=== PATIENT | female | born 1940 | race Caucasian/White ===

== ENCOUNTER 2017-01-04 13:15 | Inpatient (IN) | payer MEDICARE, MEDICAID ==
[~2017-01-04] VITALS: Ht 167.6 cm; Wt 104.3 kg
[~2017-01-04 13:15] MED LIST: BAYER CHEWABLE81 MG PO; CYCLOBENZAPRINE10 MG PO; K-TAB10 MEQ PO; SYNTHROID112 MCG PO; TYLENOL W/CODEI1 TAB PO; ZESTORETIC 20/21 TAB PO
[2017-01-04] MEDS ORDERED: SYNTHROID100 MCG PO (17:36)
[2017-01-04] MEDS ORDERED: NEURONTIN 300300 MG PO (17:37)
[2017-01-04] MEDS ORDERED: PRINIVIL10 MG PO (17:37)
[2017-01-04] MEDS ORDERED: FUROSEMIDE20 MG PO (17:38)
[2017-01-04] MEDS ORDERED: ZYLOPRIM100 MG PO (17:40)
[2017-01-04] MEDS ORDERED: MYRBETRIQ25 MG PO (17:41)
[2017-01-04] MEDS ORDERED: OMEPRAZOLE40 MG PO (17:41)
[2017-01-04] MEDS ORDERED: IPRAT-ALBUT 0.5-3 ML UPD (17:42)
[2017-01-04] MEDS ORDERED: BAYER CHEWABLE81 MG PO (17:42)
[2017-01-04] MEDS ORDERED: DOXYCYCLINE HY100 M2 PO (17:43)
[2017-01-05 10:27] VITALS: Ht 167.6 cm; Wt 104.3 kg
[2017-01-07 16:00] VITALS: BP 191/72
[2017-01-07] MEDS ORDERED: LEVAQUIN750 MG PO (17:27)
== END 2017-01-07 19:43 | disposition home or self-care (01) | DRG 871 ==
LOC: D.ER 13:15 → D.M2 15:22
PROVIDERS: ADMIT Family Medicine
DX: A41.9 Sepsis, unspecified organism (principal); J18.9 Pneumonia, unspecified organism; J44.0 Chronic obstructive pulmonary disease with (acute) lower respiratory infection; I10 Essential (primary) hypertension; I25.10 Atherosclerotic heart disease of native coronary artery without angina pectoris; E03.9 Hypothyroidism, unspecified; D63.8 Anemia in other chronic diseases classified elsewhere; M25.50 Pain in unspecified joint; Z86.718 Personal history of other venous thrombosis and embolism; Z99.81 Dependence on supplemental oxygen; R19.7 Diarrhea, unspecified; Z95.5 Presence of coronary angioplasty implant and graft

== ENCOUNTER → 2017-07-16 13:33 | Outpatient (CLI) | payer MEDICARE ==
[2017-01-05 10:27] VITALS: BMI 37.1
[~2017-07-16 13:33] MED LIST changes: +DOXYCYCLINE HY100 M2 PO; +FUROSEMIDE20 MG PO; +IPRAT-ALBUT 0.5-3 ML UPD; +LEVAQUIN750 MG PO; +MYRBETRIQ25 MG PO; +NEURONTIN 300300 MG PO; +OMEPRAZOLE40 MG PO; +PRINIVIL10 MG PO; +PROAIR HFA8.5 GM INH; +SYNTHROID100 MCG PO; +ZYLOPRIM100 MG PO
[2017-07-16 16:05] LABS: ANION GAP 10.9 mmol/L (8-16); CALCIUM 8.9 mg/dL (8.5-10.1); CARBON DIOXIDE 34.5 mmol/L (21.0-32.0); POTASSIUM - SERUM 4.4 mmol/L (3.5-5.1)
[2017-07-24 03:10] LABS: IMMUNOGLOBULIN E 35 IU/mL (0-100)
== END | disposition home or self-care (01) ==
LOC: D.RT 07-14 09:00 → D.RAD 07-14 10:15 → D.LAB 07-14 11:00 → D.RT 13:33
PROVIDERS: Internal Medicine Pulmonary Disease
DX: J44.9 Chronic obstructive pulmonary disease, unspecified (principal)

== ENCOUNTER 2017-08-17 11:01 | Outpatient (CLI) | payer MEDICARE ==
[~2017-08-17] VITALS: Ht 167.6 cm; Wt 100.5 kg
--- NOTE | ~2017-08-17 | HEMODYNAMI ---
PATIENT:ANTONIO BARAJAS MEDICAL RECORD: [id number] : 38 LOCATION:D.CAT ADMISSION DATE: 08/17/17 Generatedon:08/17/201713:52 Patient name: ANTONIO BARAJAS Patient #: [id number] : 1940 Date of study: 08/17/2017 Page: Of Hemodynamic Procedure Report Patient Data Patient Demographics Procedure consent was obtained First Name: ANTONIO Gender: Female Last Name: JENN : 1940 [facility] Initial: L Age: 76 year(s) Patient #: [id number] Race: Unknown SSN: [id number] Additional ID: [id number] Contact details [address]: [address] [place] [address] DRIVE State: [place] City: [place] Zip code: [address] Past Medical History Allergies Allergen Reaction Date Comments Reported Morphine 08/17/2017 Admission Admission Data Admission Date: 08/17/2017 Admission Time: 11:01 Arrival Date: 08/17/2017 Arrival Time: 13:00 Admit Source: Other Insurance Payor: Medicare Lab Results Lab Result Date: 08/17/2017 Lab Result Time: 0:00 Biochemistry Name Units Result Min Max BUN mg/dl 18 --(---*)-- 7 18 Creatinine mg/dl 1.1 --(--*-)-- 0.6 1.3 CBC Name Units Result Min Max Hemoglobin g/dl 11.9 *-(----)-- 13.5 17.5 Procedure Procedure Types Cath Procedure Diagnostic Procedure LHC LHC w/Coronaries Sedation Charges Moderate Sedation up to 15 minutes Procedure Description Procedure Date Procedure Date: 08/17/2017 Procedure Start Time: 13:25 Procedure End Time: 13:47 Procedure Staff Name Function Albino Thornton MD Performing Physician Carmel Perales RN Nurse Tg Jansen RT Monitor Pinky Mcintyre RT Scrub Procedure Data Cath Procedure Fluoroscopy Diagnostic fluoroscopy Total fluoroscopy Time: 3.3 time: 3.3 min min Diagnostic fluoroscopy Total fluoroscopy dose: 615 dose: 615 mGy mGy Contrast Material Contrast Material Type Amount (ml) Isovue 300 62 Entry Location Entry Primary Successful Side Size Upsize Upsize Entry Closure Succes sful Closure Location (Fr) 1 (Fr) 2 (Fr) Remarks Device Remarks Femoral Right 5 Fr Exoseal artery Estimated blood loss: 5 ml Diagnostic catheters Device Type Used For End Catheter Placement DIAGNOSTIC JL 3.5 5Fr Left Coronary catheter ([id number]) Angiography Procedure Complications No complications Procedure Medications Medication Administration Route Dosage Oxygen NC 4 l/min Lidocaine 2% added to field 20 Heparin Flush Bag added to field 2 bags (1000units/500ml NS) 0.9% NaCl I.V. 100 ml/hr Versed I.V. 2 mg Fentanyl I.V. 50 mcg Versed I.V. 1 mg Fentanyl I.V. 50 mcg Versed I.V. 1 mg Hemodynamics Rest HGB: 11.9 (g/dl) Heart Rate: 77 (bpm) Pressure Samples Time Site Value (mmHg) Purpose Heart Use Rate(bpm) 13:42 LV 142/-22,-9 Snapshot 80 13:43 AO 161/153(82) Pullback 97 Gradients Valve Time Site Site 2 Mean SEP/DFP Peak To Heart Use 1 (mmHg) (sec/min) Peak Rate (mmHg) (bpm) Aortic 13:43 LV AO 36 23 97 161/153(82) Calculations Valve P-P Mean Valve Index Valve Source Name Gradient Area Flow (cm2) Aortic 36 36 Snapshots Pre Cath Intra NCS Post Cath Vital Signs Time Heart Resp SPO2 etCO2 NIBP (mmHg) Rhythm Pain Sedation Rate (ipm) (%) (mmHg) Status Level (bpm) 13:09:53 76 28 100 0 165/83(117) NSR 0 (11) 10(A) , No pain 13:16:32 78 19 99 0 167/92(135) NSR 0 (11) 10(A) , No pain 13:20:48 73 25 97 0 165/86(124) NSR 0 (11) 10(A) , No pain 13:25:04 75 26 100 0 145/87(123) NSR 0 (11) 10(A) , No pain 13:29:12 77 22 100 0 162/85(121) NSR 0 (11) 10(A) , No pain 13:33:26 78 17 95 0 164/86(114) NSR 0 (11) 10(A) , No pain 13:37:44 83 28 100 0 159/76(125) NSR 0 (11) 10(A) , No pain 13:41:56 84 19 100 0 158/89(124) NSR 0 (11) 10(A) , No pain 13:46:08 83 11 100 0 158/88(120) NSR 0 (11) 10(A) , No pain Medications Time Medication Route Dose Verified Delivered Reason Notes Effe ctiveness by by 13:15:08 Oxygen NC 4 Albino Buffie used for l/min Norberto Perales RN procedure 13:15:15 Lidocaine 2% added 20ml Albino Albino for local to vial Norberto Thornton MD anesthetic field 13:15:21 Heparin Flush added 2 Albino Albino used for Bag to bags Norberto Thornton MD procedure (1000units/500ml field NS) 13:15:33 0.9% NaCl I.V. 100 Albino Buffie Per ml/hr Norberto Perales RN physician 13:15:46 Versed I.V. 2 mg Albino Buffie for Norberto Perales RN sedation 13:15:55 Fentanyl I.V. 50 Albino Buffie for mcg Norberto Perales RN sedation 13:23:23 Versed I.V. 1 mg Albino Buffie for Norberto Perales RN sedation 13:23:27 Fentanyl I.V. 50 Albino Buffie for mcg Norberto Perales RN sedation 13:30:49 Versed I.V. 1 mg Albino Buffie for Norberto Perales RN sedation Procedure Log Time Note 12:37:29 Patient allergic to Morphine 12:52:14 Tg Jansen RT(R) sent for patient. Start room use. 12:52:15 Time tracking: Regular hours (M-F 7:00 - 5:00) 12:52:19 Plan of Care:Hemodynamics will remain stable., Cardiac rhythm will remain stable., Comfort level will be maintained., Respiratory function will remain adequate., Patient/ family verbilizes understanding of procedure., Procedure tolerated without complication., Recovers from procedure without complications.. 12:52:38 Informed consent obtained and on chart 12:52:50 Patient received from Pre/Post Procedure Room to CCL 2 Alert and oriented. Tansferred to table in Supine position. 12:52:51 Warm blankets applied, and kem hugger turned on for patient comfort. 12:52:51 Correct patient and procedure confirmed by team. 12:52:53 Signed procedure consent form obtained from patient. 12:52:55 ECG and BP/O2 sat monitors applied to patient. 12:53:08 Arrival Date: 08/17/2017 1:00:00 PM 12:53:13 Admit Source: Other 12:53:16 Insurance Payor : Medicare 13:04:51 Full Disclosure recording started 13:04:56 H&P Date Dictated: 08/17/2017 Within 30 days and on chart., H&P Addendum completed by physician on day of procedure. (MUST COMPLETE FOR ALL OUTPATIENTS). 13:04:57 Pre-procedure instructions explained to patient. 13:04:58 Pre-op teaching completed and patient verbalized understanding. 13:04:59 Family in waiting room. 13:05:00 Patient NPO since Midnight. 13:05:03 Is the patient allergic to Iodine/contrast media? No. 13:05:04 Was the patient premedicated? No 13:06:37 Is patient on blood thinner?No 13:06:38 Patient diabetic? No. 13:06:41 Previous problem with sedation/anesthesia? No ? 13:06:46 Snore? No 13:06:47 Sleep apnea? No 13:06:47 Deviated septum? Yes 13:06:49 Opens mouth fully? Yes 13:06:50 Sticks out tongue? Yes 13:07:02 Airway obstruction? Yes on oxygen all the time 13:07:09 Dentures? Yes out 13:07:13 Pre procedure: right dorsailis pedis pulse 1+ Palpable, but thready & weak; easily obliterated 13:07:15 Pre procedure: left dorsailis pedis pulse 1+ Palpable, but thready & weak; easily obliterated 13:07:17 Patient pain scale 0/10 ?. 13:07:29 IV left antecubital D/C'd due to site irritation. 13:07:44 IV [facility] with a 16 gauge IV catheter with 0.9% NaCl at KVO. 13:07:56 Lab results completed and on chart. 13:08:00 Right Radial & Right Groin area was prepped with chlora-prep and draped in sterile fashion 13:08:01 Alarms reviewed by R. N. 13:08: Sharps counted by scrub and verified by R.N. 13:14:08 Physician arrived 13:14:08 --------ALL STOP TIME OUT------ 13:14:09 Final Timeout: patient, procedure, and site verified with staff and physician. All members of the team are in agreement. 13:14:15 Right Radial & Right Groin site verified by team. 13:14:17 Physical assessment completed. ASA score P 2 - A patient with mild systemic disease as per Albino Thornton MD. 13:14:20 Sedation plan: IV Moderate Sedation Medication:Versed, Fentanyl 13:14:27 Use device set Radial Dx or PCI 13:14:28 ACIST Syringe (37035) opened to sterile field. 13:14:29 Medline Cath Pack ([id number]) opened to sterile field. 13:14:30 Bag Decanter (2002S) opened to sterile field. 13:14:30 DIAGNOSTIC WIRE .035 260cm J wire (364500) opened to sterile field. 13:14:31 ACIST Hand Control (91923) opened to sterile field. 13:14:32 ACIST Manifold (43711) opened to sterile field. 13:14:32 Tegaderm 4 x 4 (1626W) opened to sterile field. 13:14:33 MBrace Wrist Support ([id number]) opened to sterile field. 13:14:35 NEEDLE Cook 21G 4cm Radial ([id number]) opened to sterile field. 13:14:36 SHEATH 6Fr Prelude Radial ([id number]) opened to sterile field. 13:15:08 Oxygen 4 l/min NC was administered by Carmel Perales RN; used for procedure; 13:15:15 Lidocaine 2% 20ml vial added to field was administered by Albino Thornton MD; for local anesthetic; 13:15:21 Heparin Flush Bag (1000units/500ml NS) 2 bags added to field was administered by Albino Thornton MD; used for procedure; 13:15:28 Vital chart was started 13:15:29 Baseline sample Acquired. 13:15:33 0.9% NaCl 100 ml/hr I.V. was administered by Carmel Perales RN; Per physician; 13:15:35 Rhythm: sinus rhythm 13:15:46 Versed 2 mg I.V. was administered by Carmel Perales RN; for sedation; 13:15:55 Fentanyl 50 mcg I.V. was administered by Carmel Perales RN; for sedation; 13:23:23 Versed 1 mg I.V. was administered by Carmel Perales RN; for sedation; 13:23:27 Fentanyl 50 mcg I.V. was administered by Carmel Perales RN; for sedation; 13:25:14 Procedure started. 13:25:34 Local anesthetic to right radial artery with Lidocaine 2% by Albino Thornton MD.INITIAL ACCESS ONLY 13:29:43 failed attempt at radial access; preparing for femoral access 13:29:47 Local anesthetic to right femoral artery with Lidocaine 2% by Albino Thornton MD.ADDITIONAL ACCESS 13:30:07 SHEATH 5Fr Prelude ([id number]) opened to sterile field. 13:30:20 DIAGNOSTIC Multipack 5Fr catheter set ([id number]) opened to sterile field. 13:30:49 Versed 1 mg I.V. was administered by Carmel Perales RN; for sedation; 13:31:46 A 5 Fr sheath was inserted into the Right Femoral artery 13:31:54 5 Fr jl 4 guide catheter was inserted over the wire 13:33:35 LCA angiography performed. 13:33:38 Injector settings: Ml/sec: 3, Volume: 6, 13:35:16 Catheter removed. 13:35:49 A DIAGNOSTIC JL 3.5 5Fr catheter ([id number]) was advanced over the wire and used for Left Coronary Angiography. 13:38:11 LCA angiography performed. 13:38:14 Injector settings: Ml/sec: 3, Volume: 6, 13:41:15 Catheter removed. 13:41:32 5 Fr 3drc guide catheter was inserted over the wire 13:42:08 Catheter removed. 13:42:44 5 Fr pig guide catheter was inserted over the wire 13:43:05 LV hemodynamics recorded. 13:43:07 LV gram done using VILLAGRAN 13:43:13 Injector settings: Ml/sec: 5, Volume: 15, 13:43:35 EF : 55 % 13:43:44 Catheter removed. 13:44:17 EXOSEAL 5Fr (EX500) opened to sterile field. 13:44:57 Sheath removed intact; hemostasis achieved with Exoseal to the Right Femoral artery. 13:45:00 Procedure ended.(Physican Out) 13:45:34 Fluoroscopy time 03.30 minutes. 13:45:39 Fluoroscopy dose: 615 mGy 13:45:39 Flurop Dose total: 615 13:46:04 Contrast amount:Isovue 300 62ml. 13:46:06 Sharps counted by scrub and verified by R.N. 13:46:08 Insertion/operative site no bleeding no hematoma. 13:46:11 Post-op/insertion site Right Femoral artery dressed using a 4 x 4 and Tegaderm. 13:46:15 Post right femoral artery:stable 13:46:17 Post Procedure Pulses reassessed and unchanged 13:46:20 Post procedure rhythm: unchanged. 13:46:22 Estimated blood loss: 5 ml 13:46:29 Post procedure instruction explained to patient.Patient verbalizes understanding. 13:46:30 Patient needs reinforcement of post procedure teaching. 13:46:50 Procedure type changed to Cath procedure, Diagnostic procedure, LHC, LHC w/Coronaries, Sedation Charges, Moderate Sedation up to 15 minutes 13:46:51 Procedure and supply charges have been captured, reviewed, submitted and are correct. 13:46:56 Procedure Complication : No complications 13:47:01 Vital chart was stopped 13:47:02 See physician's report for complete and final results. 13:47:08 Report given to Pre/Post Procedure Room. 13:47:16 Patient transfered to Pre/Post Procedure Room with Stretcher. 13:47:18 Procedure ended. 13:47:18 Full Disclosure recording stopped 13:47:34 End room use (Document Last) Device Usage Item Name Manufacture Quantity Catalog Number Hospital Part Current M inimal Lot# / Charge Number Stock Stock Serial# Code ACIST Syringe Acist 1 10262 073024 871229 261709 2 0 (79060) [employer] Medline Cath Cardinal 1 [id number] 256434 11199 157939 5 Empathy Co ([id number]) Bag Decanter Microtek 1 829832 52838 278368 5 () Medical Inc. DIAGNOSTIC WIRE St Isacc 1 004607 117434 898514 613950 3 0 .035 260cm J wire (365925) ACIST Hand Acist 1 52717 418515 081892 095668 5 Control (16840) Medical Systems Inc ACIST Manifold Acist 1 74462 882163 800025 890615 5 (37303) Medical Systems Inc Tegaderm 4 x 4 3M 1 1626W 104399 355327 688706 5 (1626W) MBrace Wrist Advanced 1 140-0250-00 182664 51434 523054 5 Support Vascular ([id number]) Dynamics NEEDLE Cook 21G Cook Medical 1 Y19536 948121 387673 890855 5 4cm Radial (E37114) SHEATH 6Fr Merit 1 [id number] 434695 037869 563158 5 Prelude Radial Medical ([id number]) SHEATH 5Fr Merit 1 [id number] 092743 279461 444505 5 Prelude Medical ([id number]) DIAGNOSTIC Cardinal 1 HI7411 864041 97444 120995 3 0 Multipack 5Fr Health catheter set (LD0538) DIAGNOSTIC JL Cardinal 1 [id number] 473524 988058 016109 5 3.5 5Fr Health catheter ([id number]) EXOSEAL 5Fr Cardinal 1 EX500 188645 057124 054581 1 0 (EX500) Health Signature Audit Carney Stage Time Signature Unsigned Intra-Procedure 08/17/2017 Tg Jansen 1:52:04 PM RT(R) Signatures Monitor : Tg Jansen RT Signature : Date : Time : [facility] [address] [address]
[~2017-08-17 11:01] MED LIST changes: -PROAIR HFA8.5 GM INH
[2017-08-17] MEDS ORDERED: PROAIR HFA8.5 GM INH (11:31)
[2017-08-17 11:41] VITALS: BP 135/51; Ht 167.6 cm; Wt 100.5 kg
[2017-08-17 12:01] LABS: BASOPHILS 0.6 % (0-2); EOSINOPHILS 6.9 % (0-7); HEMATOCRIT 39.8 % (36.0-48.0); HEMOGLOBIN 11.9 g/dL (12-16); IMMATURE GRANULOCYTES 0.3 % (0-5); LYMPHOCYTES 18.8 % (15-50); MCH 28.1 pg (26.0-34.0); MCHC 29.9 g/dL (31.0-37.0); MCV 93.9 fL (80.0-100.0); MEAN PLATELET VOLUME 11.5 fL (7.4-10.4); MONOCYTES 9.8 % (2-11); NEUTROPHILS 63.6 % (40-80); RBC 4.24 10x6/uL (4.00-5.40); RDW 23.4 % (11.5-14.5); WBC 8.9 10x3/uL (4.8-10.8)
[2017-08-17 12:10] LABS: ANION GAP 10.6 mmol/L (8-16); CARBON DIOXIDE 27.8 mmol/L (21.0-32.0); CREATININE - SERUM 1.1 mg/dL (0.6-1.3); POTASSIUM - SERUM 4.4 mmol/L (3.5-5.1)
[2017-08-17 12:29] LABS: PLATELET COUNT 244 10x3/uL (130-400)
== END 2017-08-17 15:45 | disposition home or self-care (01) ==
LOC: D.CATH 11:01
PROVIDERS: Internal Medicine Cardiovascular Disease
DX: J44.9 Chronic obstructive pulmonary disease, unspecified (principal); Q24.5 Malformation of coronary vessels; Z95.5 Presence of coronary angioplasty implant and graft; Z01.812 Encounter for preprocedural laboratory examination

== ENCOUNTER 2018-01-30 15:50 | Inpatient (IN) | payer MEDICARE ==
[~2018-01-30] VITALS: Ht 167.6 cm; Wt 102.1 kg
--- NOTE | ~2018-01-30 | MORECARE ---
CASE MANAGEMENT DISCHARGE SUMMARY PATIENT: ANTONIO BARAJAS UNIT: [id number] ADM DATE: 01/30/18 AGE: 77 : 39 SEX: F ROOM/BED: D.4290 AUTHOR: LOREDOC PHYSICIAN: REFERRING PHYSICIAN: ERMA MORAN MD DATE OF SERVICE: 02/04/18 Discharge Plan Patient Name: ANTONIO BARAJAS Facility: [facility]:[place] : 1940 Planned Disposition: Home Anticipated Discharge Date: 02/04/18 Discharge Date: Expected LOS: 5 Initial Reviewer: [email or web address] Initial Review Date: 01/30/2018 Generated: 02/04/18 3:29 pm DCP- Discharge Planning Updated by [email or web address]: Martha Cervantes on 01/30/18 6:[address] Patient Name: ANTONIO BARAJAS Admission Status: ER Admission Date: 01-30-2018 : 1940 Admission Diagnosis: Attending: ERMA MORAN Current LOS: 1 Anticipated DC Date: 02-02-2018 Planned Disposition: Home Primary Insurance: MEDICARE A & B Discharge Planning Comments: CM met with patient to complete initial dc planning assessment. CM educated patient on the CM role and verbal consent given by patient to complete assessment. Patient lives at home alone and reports she is mostly independent with ADL's. She has a caregiver that comes 5 days a week that assists her with house work, cooking breakfast at times, and assists her with bathing. Patient reports she lives in a 5th wheel camper She has a bench she sits on in her bath tub. At discharge patient plans to return home alone with resumption of her caregiver and feels this is a safe discharge. Patient denied known discharge needs at this time. CM did discuss community resources such as home health. Patient unsure is she will need HH or not. CM will continue to follow and will assist as needed with dc plans/needs. See below for more assessment information. Is the patient Alert and Oriented? Yes * How many steps to enter\exit or inside your home? Ramp * PCP Dr. Avendaño * Pharmacy [facility] [address] * Preadmission Environment Home Alone * ADLs Independent * Equipment Nebulizer Oxygen Rolling Walker * Other Equipment [employer] is O2 provider. Wears O2 24/7 * List name and contact numbers for known caregivers / representatives who currently or will assist patient after discharge: Niles garrett- [phone] Moses Baldwin gerry [phone] * Verbal permission to speak to the caregivers and representatives has been obtained from the patient. Yes * Community resources currently utilized Private Duty Care * Additional services required to return to the preadmission environment? No * Can the patient safely return to the preadmission environment? Yes * Has this patient been hospitalized within the prior 30 days at any hospital? No Private Security Guard: Martha Cervantes DCPIA - Discharge Planning Initial Assessment Updated by [email or web address]: Martha Cervantes on 01/30/18 6:58 pm * Is the patient Alert and Oriented? Yes * How many steps to enter\exit or inside your home? Ramp * PCP Dr. Avendaño * Pharmacy [facility] [address] by [address] * Preadmission Environment Home Alone * ADLs Independent * Equipment Nebulizer Oxygen Rolling Walker * Other Equipment [facility] is O2 provider. Wears O2 24/7 * List name and contact numbers for known caregivers / representatives who currently or will assist patient after discharge: Niles Da Silva gerry- [phone] Moses Baldwin [facility] [phone] * Verbal permission to speak to the caregivers and representatives has been obtained from the patient. Yes * Community resources currently utilized Private Duty Care * Additional services required to return to the preadmission environment? No * Can the patient safely return to the preadmission environment? Yes * Has this patient been hospitalized within the prior 30 days at any hospital? No Coverage Notice Reviewer: [email or web address] Jean Paul Lozada Notice Issued Date-Time: 02/04/2018 14:26 Notice Type: IM Discharge Notice Notice Delivered To: Patient Relationship to Patient: Self Aerospace Manager Name: Delivery Method: HAND - Hand Delivered Antonia Days: Prior Verbal Notification: Recipient Understood Notice: Yes Recipient Signature: Yes Med Rec Note Co-signed by Attending: Coverage Notice Comment: Last DP export: 01/30/18 6:04 Patient Name: ANTONIO BARAJAS Page [id number] at 1429 All edits/amendments must be made on the electronic document DICTATION DATE: 02/04/181428 HOOP COILING MACHINE OPERATOR: FLAKO 02/04/181428 RPT#: [id number] DC DATE: STATUS: ADM IN [facility] [address] [place] [address] END OF REPORT
--- NOTE | ~2018-01-30 | MORECARE ---
CASE MANAGEMENT DISCHARGE SUMMARY PATIENT: ANTONIO BARAJAS UNIT: [id number] ADM DATE: 01/30/18 AGE: 77 : 39 SEX: F ROOM/BED: D.7930 AUTHOR: PAUL TORREZ PHYSICIAN: REFERRING PHYSICIAN: ERMA MORAN MD DATE OF SERVICE: 01/30/18 Discharge Plan Patient Name: ANTONIO BARAJAS Facility: [facility]:[place] : 1940 Planned Disposition: Home Anticipated Discharge Date: 02/02/18 Discharge Date: Expected LOS: 3 Initial Reviewer: [email or web address] Initial Review Date: 01/30/2018 Generated: 01/30/18 8:04 pm DCP- Discharge Planning Updated by [email or web address]: Martha Cervantes on 01/30/18 6:[address] Patient Name: ANTONIO BARAJAS Admission Status: ER Admission Date: 01-30-2018 : 1940 Admission Diagnosis: Attending: ERMA MORAN Current LOS: 1 Anticipated DC Date: 02-02-2018 Planned Disposition: Home Primary Insurance: MEDICARE A & B Discharge Planning Comments: CM met with patient to complete initial dc planning assessment. CM educated patient on the CM role and verbal consent given by patient to complete assessment. Patient lives at home alone and reports she is mostly independent with ADL's. She has a caregiver that comes 5 days a week that assists her with house work, cooking breakfast at times, and assists her with bathing. Patient reports she lives in a 5th wheel camper She has a bench she sits on in her bath tub. At discharge patient plans to return home alone with resumption of her caregiver and feels this is a safe discharge. Patient denied known discharge needs at this time. CM did discuss community resources such as home health. Patient unsure is she will need HH or not. CM will continue to follow and will assist as needed with dc plans/needs. See below for more assessment information. Is the patient Alert and Oriented? Yes * How many steps to enter\exit or inside your home? Ramp * PCP Dr. Avendaño * Pharmacy [facility] [address] by [address] * Preadmission Environment Home Alone * ADLs Independent * Equipment Nebulizer Oxygen Rolling Walker * Other Equipment [facility] is O2 provider. Wears O2 24/7 * List name and contact numbers for known caregivers / representatives who currently or will assist patient after discharge: Niles garrett- [phone] Moses Baldwin gerry [phone] * Verbal permission to speak to the caregivers and representatives has been obtained from the patient. Yes * Community resources currently utilized Private Duty Care * Additional services required to return to the preadmission environment? No * Can the patient safely return to the preadmission environment? Yes * Has this patient been hospitalized within the prior 30 days at any hospital? No Home Care Coordinator: Martha Cervantes DCPIA - Discharge Planning Initial Assessment Updated by [email or web address]: Martha Cervantes on 01/30/18 6:58 pm * Is the patient Alert and Oriented? Yes * How many steps to enter\exit or inside your home? Ramp * PCP Dr. Avendaño * Pharmacy [facility] on [address] by [address] * Preadmission Environment Home Alone * ADLs Independent * Equipment Nebulizer Oxygen Rolling Walker * Other Equipment [facility] is O2 provider. Wears O2 24/7 * List name and contact numbers for known caregivers / representatives who currently or will assist patient after discharge: Nileskenny Da Silva gerry- [phone] Moses Baldwin gerry [phone] * Verbal permission to speak to the caregivers and representatives has been obtained from the patient. Yes * Community resources currently utilized Private Duty Care * Additional services required to return to the preadmission environment? No * Can the patient safely return to the preadmission environment? Yes * Has this patient been hospitalized within the prior 30 days at any hospital? No Last DP export: 01/30/18 5:57 Patient Name: ANTONIO BARAJAS Page [id number] at 1904 All edits/amendments must be made on the electronic document DICTATION DATE: 01/30/181902 AUTOMOTIVE ELECTRICIAN HELPER: FLAKO 01/30/181902 RPT#: [id number] DC DATE: STATUS: ADM IN [facility] [address] [place] [address] END OF REPORT
--- NOTE | ~2018-01-30 | MORECARE ---
CASE MANAGEMENT DISCHARGE SUMMARY PATIENT: ANTONIO BARAJAS UNIT: [id number] ADM DATE: 01/30/18 AGE: 77 : 39 SEX: F ROOM/BED: D.2230 AUTHOR: PAUL TORREZ PHYSICIAN: REFERRING PHYSICIAN: ERMA MORAN MD DATE OF SERVICE: 01/30/18 Discharge Plan Patient Name: ANTONIO BARAJAS Facility: [facility]:[place] : 1940 Planned Disposition: Home Anticipated Discharge Date: 02/02/18 Discharge Date: Expected LOS: 3 Initial Reviewer: [email or web address] Initial Review Date: 01/30/2018 Generated: 01/30/18 7:57 pm Patient Name: ANTONIO BARAJAS Page 25294 at 1857 All edits/amendments must be made on the electronic document DICTATION DATE: 01/30/181856 CASINO SURVEILLANCE OFFICER: FLAKO 01/30/181856 RPT#: [id number] DC DATE: STATUS: ADM IN [facility] [address] [place] [address] END OF REPORT
--- NOTE | ~2018-01-30 | MORECARE ---
CASE MANAGEMENT DISCHARGE SUMMARY PATIENT: ANTONIO BARAJAS UNIT: [id number] ADM DATE: 01/30/18 AGE: 77 : 39 SEX: F ROOM/BED: D.2230 AUTHOR: PAUL TORREZ PHYSICIAN: REFERRING PHYSICIAN: ERMA MORAN MD DATE OF SERVICE: 02/04/18 Discharge Plan Patient Name: ANTONIO BARAJAS Facility: [facility]:[place] : 1940 Planned Disposition: Home Anticipated Discharge Date: 02/04/18 Discharge Date: Expected LOS: 5 Initial Reviewer: [email or web address] Initial Review Date: 01/30/2018 Generated: 02/04/18 3:36 pm Comments DCP- Discharge Planning Updated by [id number]: Miroslava Lozada on 02/04/18 1:[address] Patient Name: ANTONIO BARAJAS Encounter No: [id number] : 1940 Primary Insurance: MEDICARE A & B Anticipated DC Date: 02-04-2018 Planned Disposition: Home External Planned Provider: : DCP follow-up note: Patient and family in agreement with discharge plan. No changes to plan. Patient already has a complex care nurse and doesn't want home health. She is trying to get in touch with family to bring her portable oxygen tank in order to transfer home. Case management will follow and assist as needed. Miroslava Lozada DCP- Discharge Planning Updated by [email or web address]: Martha Cervantes on 01/30/18 6:[address] Patient Name: ANTONIO BARAJAS Admission Status: ER Admission Date: 01-30-2018 : 1940 Admission Diagnosis: Attending: ERMA MORAN Current LOS: 1 Anticipated DC Date: 02-02-2018 Planned Disposition: Home Primary Insurance: MEDICARE A & B Discharge Planning Comments: CM met with patient to complete initial dc planning assessment. CM educated patient on the CM role and verbal consent given by patient to complete assessment. Patient lives at home alone and reports she is mostly independent with ADL's. She has a caregiver that comes 5 days a week that assists her with house work, cooking breakfast at times, and assists her with bathing. Patient reports she lives in a 5th wheel camper She has a bench she sits on in her bath tub. At discharge patient plans to return home alone with resumption of her caregiver and feels this is a safe discharge. Patient denied known discharge needs at this time. CM did discuss community resources such as home health. Patient unsure is she will need HH or not. CM will continue to follow and will assist as needed with dc plans/needs. See below for more assessment information. Is the patient Alert and Oriented? Yes * How many steps to enter\exit or inside your home? Ramp * PCP Dr. Avendaño * Pharmacy [facility] [address] by [address] * Preadmission Environment Home Alone * ADLs Independent * Equipment Nebulizer Oxygen Rolling Walker * Other Equipment [employer] is O2 provider. Wears O2 24/7 * List name and contact numbers for known caregivers / representatives who currently or will assist patient after discharge: [facility]- [phone] Moses [facility] [phone] * Verbal permission to speak to the caregivers and representatives has been obtained from the patient. Yes * Community resources currently utilized Private Duty Care * Additional services required to return to the preadmission environment? No * Can the patient safely return to the preadmission environment? Yes * Has this patient been hospitalized within the prior 30 days at any hospital? No Functional Consultant: Martha Cervantes DCPIA - Discharge Planning Initial Assessment Updated by [email or web address]: Martha Cervantes on 01/30/18 6:58 pm * Is the patient Alert and Oriented? Yes * How many steps to enter\exit or inside your home? Ramp * PCP Dr. Avendaño * Pharmacy [facility] [address] by [address]NE [address]meron * Preadmission Environment Home Alone * ADLs Independent * Equipment Nebulizer Oxygen Rolling Walker * Other Equipment [employer] is O2 provider. Wears O2 24/7 * List name and contact numbers for known caregivers / representatives who currently or will assist patient after discharge: [facility]- [phone] Moses [facility] [phone] * Verbal permission to speak to the caregivers and representatives has been obtained from the patient. Yes * Community resources currently utilized Private Duty Care * Additional services required to return to the preadmission environment? No * Can the patient safely return to the preadmission environment? Yes * Has this patient been hospitalized within the prior 30 days at any hospital? No Coverage Notice Reviewer: [id number] Jean Paul Lozada Notice Issued Date-Time: 02/04/2018 14:26 Notice Type: IM Discharge Notice Notice Delivered To: Patient Relationship to Patient: Self Dimensional Integration Engineer Name: Delivery Method: HAND - Hand Delivered Antonia Days: Prior Verbal Notification: Recipient Understood Notice: Yes Recipient Signature: Yes Med Rec Note Co-signed by Attending: Coverage Notice Comment: Last DP export: 02/04/18 1:29 Patient Name: ANTONIO BARAJAS Page 34445 at 1437 All edits/amendments must be made on the electronic document DICTATION DATE: 02/04/181435 FLUME MAKER: FLAKO 02/04/181435 RPT#: [id number] DC DATE: STATUS: ADM IN [facility] [address] [place] [address] END OF REPORT
--- NOTE | ~2018-01-30 | CN ---
PATIENT NAME:ANTONIO WHITE MEDICAL RECORD: [id number] : 38 LOCATION:[facility] ADMIT DATE: 01/30/18 ACCOUNT: [id number] CONSULTING PHYSICIAN: XIANG REILLY MD REFERRING PHYSICIAN: ERMA MORAN MD DATE OF CONSULTATION: 01/31/2018 CONSULT REQUESTING PHYSICIAN: Tg Knutson MD REASON FOR CONSULTATION: Bilateral pneumonia. HISTORY OF PRESENT ILLNESS: Ms. White is a 77-year-old female, who is followed by Dr. Moyer. She has a flu shot and a pneumonia shot, but she is sick for the last few. She is coughing. She has shortness of breath. The cough is productive of yellow color sputum production. She also hear herself wheezing. The patient has a chest radiograph, which showed bilateral pneumonia. REVIEW OF SYSTEMS: As in history of present illness. PAST MEDICAL HISTORY: 1. COPD. 2. Chronic hypoxic respiratory failure. 3. Emphysema. 4. Coronary artery disease. 5. Gastroesophageal reflux disease. PAST SURGICAL HISTORY: 1. She has a cardiac catheterization. 2. Appendectomy. 3. Hysterectomy. ALLERGIES: SHE IS ALLERGIC TO MORPHINE. MEDICATIONS: Hingi is reviewed. PERSONAL AND SOCIAL HISTORY: The patient is an ex-smoker. She is a nondrinker. FAMILY HISTORY: Noncontributory. PHYSICAL EXAMINATION: GENERAL: Now, the patient is lying comfortably, but she is not in acute distress. VITAL SIGNS: The blood pressure is 144/58, pulse is 85, respirations 16, temperature 98.8, SpO2 is 93% on 4 liters nasal cannula. HEENT: Conjunctivae are pink. Sclerae are not icteric. NECK: Supple, no JVD. CHEST: There is prolonged expiration with wheezing. HEART: Rhythm regular, normal sound, no murmur. ABDOMEN: Soft, bowel sounds present. No hepatosplenomegaly. RECTAL: Deferred. EXTREMITIES: No cyanosis, no clubbing, no pedal edema. SKIN: Warm, normal turgor. CENTRAL NERVOUS SYSTEM: The patient is awake and alert. There are no obvious acute abnormality. The gait was not tested. CONSULT REPORT [id number] ANTONIO WHITE CHEST RADIOGRAPH: There are bilateral infiltrate. OTHER LABORATORY DATA: CBC: WBC 13.6, hemoglobin 11, hematocrit 35.3, the platelet count is 321. IMPRESSION: 1. Acute exacerbation of chronic obstructive pulmonary disease. 2. Hybnf-dm-njyexnl hypoxic respiratory failure. 3. Bilateral pneumonia, most likely community-acquired pneumonia. 4. Leukocytosis. 5. Dyspnea. RECOMMENDATION: 1. Continue Levaquin. I will add Rocephin for Gram-negative rods. 2. We will start Brovana and budesonide nebulizer. 3. Albuterol/ipratropium nebulizer. 4. Methylprednisolone IV. 5. Mucinex DM. 6. We will follow up labs and chest radiograph. Dr. Knutson, thank you for involving me in the care of Ms. White. TRANSINT:[id number] Voice Confirmation ID: [id number] DOCUMENT ID: [id number] XIANG REILLY MD at 1234 CC: [id number] DICTATION DATE: 01/31/18 1846 FOOD PROCESSING SCIENTIST: 02/01/18 0118 DIS IN 02/04/18 [place] [id number] [place] [address]
--- NOTE | ~2018-01-30 | MORECARE ---
CASE MANAGEMENT DISCHARGE SUMMARY PATIENT: ANTONIO BARAJAS UNIT: [id number] ADM DATE: 01/30/18 AGE: 77 : 39 SEX: F ROOM/BED: D.2230 AUTHOR: PAUL TORREZ PHYSICIAN: REFERRING PHYSICIAN: ERMA MORAN MD DATE OF SERVICE: 02/07/18 Discharge Plan Patient Name: ANTONIO BARAJAS Facility: [facility]:[place] : 1940 Planned Disposition: Home Anticipated Discharge Date: 02/04/18 Discharge Date: 02/04/2018 Expected LOS: 5 Initial Reviewer: [email or web address] Initial Review Date: 01/30/2018 Generated: 02/07/18 9:23 am Comments DCP- Discharge Planning Updated by [email or web address]: Miroslava Lozada on 02/04/18 1:[address] Patient Name: ANTONIO BARAJAS Encounter No: [id number] : 1940 Primary Insurance: MEDICARE A & B Anticipated DC Date: 02-04-2018 Planned Disposition: Home External Planned Provider: : DCP follow-up note: Patient and family in agreement with discharge plan. No changes to plan. Patient already has a landcare officer and doesn't want home health. She is trying to get in touch with family to bring her portable oxygen tank in order to transfer home. Case management will follow and assist as needed. Miroslava Lozada DCP- Discharge Planning Updated by [email or web address]: Martha Cervantes on 01/30/18 6:[address] Patient Name: ANTONIO BARAJAS Admission Status: ER Admission Date: 01-30-2018 : 1940 Admission Diagnosis: Attending: ERMA MORAN Current LOS: 1 Anticipated DC Date: 02-02-2018 Planned Disposition: Home Primary Insurance: MEDICARE A & B Discharge Planning Comments: CM met with patient to complete initial dc planning assessment. CM educated patient on the CM role and verbal consent given by patient to complete assessment. Patient lives at home alone and reports she is mostly independent with ADL's. She has a caregiver that comes 5 days a week that assists her with house work, cooking breakfast at times, and assists her with bathing. Patient reports she lives in a 5th wheel camper She has a bench she sits on in her bath tub. At discharge patient plans to return home alone with resumption of her caregiver and feels this is a safe discharge. Patient denied known discharge needs at this time. CM did discuss community resources such as home health. Patient unsure is she will need HH or not. CM will continue to follow and will assist as needed with dc plans/needs. See below for more assessment information. Is the patient Alert and Oriented? Yes * How many steps to enter\exit or inside your home? Ramp * PCP Dr. Avendaño * Pharmacy [facility] [address] by [address]NE Salmeron * Preadmission Environment Home Alone * ADLs Independent * Equipment Nebulizer Oxygen Rolling Walker * Other Equipment [employer] is O2 provider. Wears O2 24/7 * List name and contact numbers for known caregivers / representatives who currently or will assist patient after discharge: [facility]- [phone] [facility] [phone] * Verbal permission to speak to the caregivers and representatives has been obtained from the patient. Yes * Community resources currently utilized Private Duty Care * Additional services required to return to the preadmission environment? No * Can the patient safely return to the preadmission environment? Yes * Has this patient been hospitalized within the prior 30 days at any hospital? No Test Center Administrator: [facility] Initial Assessment Updated by [email or web address]: Martha Cervantes on 01/30/18 6:58 pm * Is the patient Alert and Oriented? Yes * How many steps to enter\exit or inside your home? Ramp * PCP Dr. Avendaño * Pharmacy [facility] [address] by SUSANNE Salmeron * Preadmission Environment Home Alone * ADLs Independent * Equipment Nebulizer Oxygen Rolling Walker * Other Equipment [employer] is O2 provider. Wears O2 24/7 * List name and contact numbers for known caregivers / representatives who currently or will assist patient after discharge: [facility]- [phone] [facility] [phone] * Verbal permission to speak to the caregivers and representatives has been obtained from the patient. Yes * Community resources currently utilized Private Duty Care * Additional services required to return to the preadmission environment? No * Can the patient safely return to the preadmission environment? Yes * Has this patient been hospitalized within the prior 30 days at any hospital? No Coverage Notice Reviewer: [id number] Jean Paul Lozada Notice Issued Date-Time: 02/04/2018 14:26 Notice Type: IM Discharge Notice Notice Delivered To: Patient Relationship to Patient: Self Swatch Paster Name: Delivery Method: HAND - Hand Delivered Antonia Days: Prior Verbal Notification: Recipient Understood Notice: Yes Recipient Signature: Yes Med Rec Note Co-signed by Attending: Coverage Notice Comment: Last DP export: 02/04/18 1:36 Patient Name: ANTONIO BARAJAS Page 36073 at 0823 All edits/amendments must be made on the electronic document DICTATION DATE: 02/07/18821 TRAM DRIVER: FLAKO 02/07/18821 RPT#: [id number] DC DATE:02/04/18 STATUS: DIS IN [facility] [address] [place] [address] END OF REPORT
[~2018-01-30 15:50] MED LIST changes: +PROAIR HFA8.5 GM INH
[2018-01-30] MEDS ORDERED: OXYGEN (16:07)
[2018-01-30 16:30] VITALS: BP 154/70
[2018-01-30 16:44] LABS: BASOPHILS 0.2 % (0-2); EOSINOPHILS 0.4 % (0-7); HEMATOCRIT 35.3 % (36.0-48.0); IMMATURE GRANULOCYTES 0.4 % (0-5); LYMPHOCYTES 7.7 % (15-50); MCH 31.3 pg (26.0-34.0); MCHC 31.2 g/dL (31.0-37.0); MCV 100.3 fL (80.0-100.0); MEAN PLATELET VOLUME 10.8 fL (7.4-10.4); MONOCYTES 9.3 % (2-11); RBC 3.52 10x6/uL (4.00-5.40); RDW 14.2 % (11.5-14.5); WBC 13.6 10x3/uL (4.8-10.8)
[2018-01-30 16:45] LABS: PLATELET COUNT 321 10x3/uL (130-400)
[2018-01-30 16:53] LABS: APTT 27.8 SECONDS (22.8-39.4); INR 1.02 (0.85-1.17)
[2018-01-30 16:55] LABS: D-DIMER-QUANTITATIVE 1.94 ug/mLFEU (0.20-0.54)
[2018-01-30 17:07] LABS: ALBUMIN 3.2 g/dL (3.4-5.0); ALKALINE PHOSPHATASE 90 U/L (46-116); ALT (SGPT) 20 U/L (10-68); BILIRUBIN - TOTAL 0.16 mg/dL (0.2-1.3); CALC OSMOLALITY 289 mosm/kg (275-300); CALCIUM 9.2 mg/dL (8.5-10.1); CARBON DIOXIDE 33.3 mmol/L (21.0-32.0); CHLORIDE - SERUM 104 mmol/L (98-107); CREATININE - SERUM 1.3 mg/dL (0.6-1.3); POTASSIUM - SERUM 4.4 mmol/L (3.5-5.1); PROTEIN - SERUM 7.7 g/dL (6.4-8.2); SODIUM 142 mmol/L (136-145); UREA NITROGEN 24 mg/dL (7-18); eGFR NON AFRICAN AMERICAN 42 mL/min (90-120)
[2018-01-30 17:12] LABS: CREATINE KINASE 87 UL (21-215); GLUCOSE 146 mg/dL (74-106); PRO BNP 350 pg/mL (0-450)
[2018-01-30 17:24] LABS: TROPONIN-I < 0.017 ng/mL (0.000-0.060)
[2018-01-30 17:30] VITALS: BP 150/75
[2018-01-30 22:54] VITALS: BP 161/72
[2018-01-31 00:07] VITALS: BP 161/72; BMI 36.4
[2018-01-31 05:09] VITALS: BP 153/56
[2018-01-31 08:00] VITALS: BP 144/58
[2018-01-31 13:06] VITALS: BP 173/68
[2018-01-31 13:15] VITALS: Ht 167.6 cm; Wt 102.1 kg
[2018-01-31 16:30] VITALS: BP 146/63
[2018-01-31 20:00] VITALS: BP 170/61
[2018-02-01 04:00] VITALS: BP 163/81
[2018-02-01 05:56] LABS: BASOPHILS 0 % (0-2); EOSINOPHILS 0 % (0-7); HEMATOCRIT 33.1 % (36.0-48.0); HEMOGLOBIN 10.2 g/dL (12-16); IMMATURE GRANULOCYTES 0.5 % (0-5); LYMPHOCYTES 4.4 % (15-50); MCH 30.8 pg (26.0-34.0); MCHC 30.8 g/dL (31.0-37.0); MONOCYTES 4.5 % (2-11); NEUTROPHILS 90.6 % (40-80); PLATELET COUNT 317 10x3/uL (130-400); RBC 3.31 10x6/uL (4.00-5.40); RDW 14.1 % (11.5-14.5); WBC 12.9 10x3/uL (4.8-10.8)
[2018-02-01 06:11] LABS: ALBUMIN 2.8 g/dL (3.4-5.0); BILIRUBIN - TOTAL 0.12 mg/dL (0.2-1.3); CALCIUM 8.7 mg/dL (8.5-10.1); CARBON DIOXIDE 33.1 mmol/L (21.0-32.0); CREATININE - SERUM 1.2 mg/dL (0.6-1.3); POTASSIUM - SERUM 4.1 mmol/L (3.5-5.1); PROTEIN - SERUM 6.9 g/dL (6.4-8.2)
[2018-02-01 09:59] VITALS: BP 153/73
[2018-02-01 11:36] VITALS: BP 184/68
[2018-02-01 16:28] VITALS: BP 197/71
[2018-02-01 20:00] VITALS: BP 138/86
[2018-02-02 04:52] VITALS: BP 144/78
[2018-02-02 06:14] LABS: BASOPHILS 0.1 % (0-2); EOSINOPHILS 0 % (0-7); HEMATOCRIT 33.4 % (36.0-48.0); IMMATURE GRANULOCYTES 0.3 % (0-5); LYMPHOCYTES 5.5 % (15-50); MCH 30.3 pg (26.0-34.0); MCHC 29.9 g/dL (31.0-37.0); MCV 101.2 fL (80.0-100.0); MEAN PLATELET VOLUME 11.1 fL (7.4-10.4); MONOCYTES 10.8 % (2-11); NEUTROPHILS 83.3 % (40-80); PLATELET COUNT 332 10x3/uL (130-400); RDW 14.4 % (11.5-14.5); WBC 15.4 10x3/uL (4.8-10.8)
[2018-02-02 06:32] LABS: ALBUMIN 2.7 g/dL (3.4-5.0); ANION GAP 8.7 mmol/L (8-16); BILIRUBIN - TOTAL 0.17 mg/dL (0.2-1.3); CALCIUM 8.4 mg/dL (8.5-10.1); CREATININE - SERUM 1.1 mg/dL (0.6-1.3); POTASSIUM - SERUM 4.7 mmol/L (3.5-5.1); PROTEIN - SERUM 6.4 g/dL (6.4-8.2)
[2018-02-02 09:02] VITALS: BP 124/78
[2018-02-02 13:03] VITALS: BP 153/92
[2018-02-02 16:05] VITALS: BP 177/59
[2018-02-02 20:00] VITALS: BP 157/52
[2018-02-03 00:57] VITALS: BP 184/83
[2018-02-03 04:29] LABS: BASOPHILS 0 % (0-2); EOSINOPHILS 0 % (0-7); HEMATOCRIT 31.2 % (36.0-48.0); HEMOGLOBIN 9.6 g/dL (12-16); IMMATURE GRANULOCYTES 0.6 % (0-5); LYMPHOCYTES 8.6 % (15-50); MCH 31.3 pg (26.0-34.0); MCHC 30.8 g/dL (31.0-37.0); MCV 101.6 fL (80.0-100.0); MEAN PLATELET VOLUME 10.7 fL (7.4-10.4); MONOCYTES 5.8 % (2-11); PLATELET COUNT 287 10x3/uL (130-400); RBC 3.07 10x6/uL (4.00-5.40); RDW 14.4 % (11.5-14.5)
[2018-02-03 04:58] LABS: ALBUMIN 2.6 g/dL (3.4-5.0); ANION GAP 10.6 mmol/L (8-16); BILIRUBIN - TOTAL 0.12 mg/dL (0.2-1.3); CALCIUM 8.5 mg/dL (8.5-10.1); CARBON DIOXIDE 30.7 mmol/L (21.0-32.0); POTASSIUM - SERUM 5.3 mmol/L (3.5-5.1)
[2018-02-03 05:06] LABS: CREATININE - SERUM 1.4 mg/dL (0.6-1.3)
[2018-02-03 05:35] VITALS: BP 146/56
[2018-02-03 08:52] VITALS: BP 148/61
[2018-02-03 13:28] VITALS: BP 164/76
[2018-02-03 17:53] VITALS: BP 176/66
[2018-02-03 21:24] VITALS: BP 174/94
[2018-02-04 05:18] VITALS: BP 149/54
[2018-02-04 05:20] LABS: BASOPHILS 0.1 % (0-2); EOSINOPHILS 1.3 % (0-7); HEMATOCRIT 33.1 % (36.0-48.0); HEMOGLOBIN 9.9 g/dL (12-16); IMMATURE GRANULOCYTES 0.7 % (0-5); LYMPHOCYTES 15.9 % (15-50); MCH 30.6 pg (26.0-34.0); MCHC 29.9 g/dL (31.0-37.0); MCV 102.2 fL (80.0-100.0); MEAN PLATELET VOLUME 10.8 fL (7.4-10.4); MONOCYTES 14.5 % (2-11); NEUTROPHILS 67.5 % (40-80); PLATELET COUNT 314 10x3/uL (130-400); RBC 3.24 10x6/uL (4.00-5.40); RDW 14.3 % (11.5-14.5)
[2018-02-04 05:41] LABS: ALBUMIN 2.8 g/dL (3.4-5.0); ANION GAP 6.1 mmol/L (8-16); BILIRUBIN - TOTAL 0.19 mg/dL (0.2-1.3); CALCIUM 8.7 mg/dL (8.5-10.1); CREATININE - SERUM 1.1 mg/dL (0.6-1.3); POTASSIUM - SERUM 5.1 mmol/L (3.5-5.1); PROTEIN - SERUM 6.2 g/dL (6.4-8.2)
[2018-02-04 08:57] VITALS: BP 149/59
[2018-02-04 12:30] VITALS: BP 171/55
[2018-02-04] MEDS ORDERED: PULMICORT0.5 MG/21 UPD (13:22)
[2018-02-04] MEDS ORDERED: MUCINEX DM ER1 EAC1 PO (13:22)
[2018-02-04] MEDS ORDERED: TESSALON PERLE100 MG PO (13:22)
[2018-02-04] MEDS ORDERED: LEVAQUIN750 MG PO (15:03)
[2018-02-04] MEDS ORDERED: PREDNISONE10 MG PO (15:03)
[2018-02-04] MEDS ORDERED: OMNICEF300 MG PO (15:03)
[2018-02-05] MEDS ORDERED: TYLENOL W/CODEI1 TAB PO (16:11)
== END 2018-02-04 15:22 | disposition home or self-care (01) | DRG 177 ==
LOC: D.ER 15:50 → D.EDHOLD 17:50 → D.MS 17:50
PROVIDERS: Emergency Medicine
DX: J15.6 Pneumonia due to other Gram-negative bacteria (principal); J96.21 Acute and chronic respiratory failure with hypoxia; Z99.81 Dependence on supplemental oxygen; D63.8 Anemia in other chronic diseases classified elsewhere; I10 Essential (primary) hypertension; I25.10 Atherosclerotic heart disease of native coronary artery without angina pectoris; J43.9 Emphysema, unspecified; K21.9 Gastro-esophageal reflux disease without esophagitis; E03.9 Hypothyroidism, unspecified; M25.50 Pain in unspecified joint; R19.7 Diarrhea, unspecified; E87.5 Hyperkalemia

== ENCOUNTER 2018-02-05 13:29 | Emergency (ER) | payer MEDICARE ==
[~2018-02-05 13:29] MED LIST changes: +MUCINEX DM ER1 EAC1 PO; +OMNICEF300 MG PO; +OXYGEN; +PREDNISONE10 MG PO; +PULMICORT0.5 MG/21 UPD; +TESSALON PERLE100 MG PO
[2018-02-05 13:33] VITALS: BP 156/66; Ht 167.6 cm
[2018-02-05 14:24] LABS: BASOPHILS 0 % (0-2); EOSINOPHILS 3.8 % (0-7); HEMATOCRIT 33.7 % (36.0-48.0); HEMOGLOBIN 10.3 g/dL (12-16); IMMATURE GRANULOCYTES 0.8 % (0-5); LYMPHOCYTES 11.8 % (15-50); MCH 31.1 pg (26.0-34.0); MCHC 30.6 g/dL (31.0-37.0); MCV 101.8 fL (80.0-100.0); NEUTROPHILS 73.6 % (40-80); PLATELET COUNT 300 10x3/uL (130-400); RBC 3.31 10x6/uL (4.00-5.40); RDW 14.3 % (11.5-14.5); WBC 14.7 10x3/uL (4.8-10.8)
[2018-02-05 14:41] LABS: ANION GAP 6.1 mmol/L (8-16); BILIRUBIN - TOTAL 0.21 mg/dL (0.2-1.3); CALCIUM 8.8 mg/dL (8.5-10.1); CARBON DIOXIDE 39.3 mmol/L (21.0-32.0); CREATININE - SERUM 1.3 mg/dL (0.6-1.3); POTASSIUM - SERUM 4.4 mmol/L (3.5-5.1); PROTEIN - SERUM 6.2 g/dL (6.4-8.2)
[2018-02-05 15:30] LABS: APPEARANCE CLEAR (CLEAR); BILIRUBIN NEGATIVE (NEGATIVE); COLOR YELLOW (YELLOW); GLUCOSE NEGATIVE (NEGATIVE); KETONE NEGATIVE (NEGATIVE); NITRITE NEGATIVE (NEGATIVE); PROTEIN NEGATIVE (NEGATIVE); SPECIFIC GRAVITY 1.015 (1.005-1.020); UROBILINOGEN NORMAL (NORMAL)
[2018-02-05] MEDS ORDERED: TYLENOL W/CODEI1 TAB PO (16:11)
== END 2018-02-05 16:10 ==
LOC: D.ER 13:29
PROVIDERS: Family Medicine
DX: M54.6 Pain in thoracic spine (principal); J44.9 Chronic obstructive pulmonary disease, unspecified; Z87.01 Personal history of pneumonia (recurrent); I10 Essential (primary) hypertension; K21.9 Gastro-esophageal reflux disease without esophagitis; Z85.41 Personal history of malignant neoplasm of cervix uteri

== ENCOUNTER → 2018-07-13 08:47 | Outpatient (CLI) | payer MEDICARE | END | disposition home or self-care (01) | LOC: D.RT 08:47 | PROVIDERS: ATTEND Internal Medicine Pulmonary Disease | DX: J44.9 Chronic obstructive pulmonary disease, unspecified (principal) ==

== ENCOUNTER 2018-11-07 10:36 | Inpatient (IN) | payer MEDICARE, MEDICAID ==
[~2018-11-07] VITALS: Ht 167.6 cm; Wt 102.5 kg
[2018-11-07 12:31] VITALS: BP 165/68
[2018-11-07 12:32] LABS: BASOPHILS 0.4 % (0-2); EOSINOPHILS 3.5 % (0-7); HEMATOCRIT 32.6 % (36.0-48.0); HEMOGLOBIN 10.3 g/dL (12-16); IMMATURE GRANULOCYTES 0.2 % (0-5); LYMPHOCYTES 11.4 % (15-50); MCH 28.8 pg (26.0-34.0); MCHC 31.6 g/dL (31.0-37.0); MCV 91.1 fL (80.0-100.0); MEAN PLATELET VOLUME 11.2 fL (7.4-10.4); MONOCYTES 7.5 % (2-11); PLATELET COUNT 285 10x3/uL (130-400); RBC 3.58 10x6/uL (4.00-5.40); RDW 14.9 % (11.5-14.5); WBC 9.9 10x3/uL (4.8-10.8)
[2018-11-07 12:41] LABS: INR 1.07 (0.85-1.17); PROTIME 13.4 SECONDS (11.6-15.0)
[2018-11-07 13:00] LABS: ALBUMIN 3.3 g/dL (3.4-5.0); ANION GAP 10.1 mmol/L (8-16); BILIRUBIN - TOTAL 0.27 mg/dL (0.2-1.3); CALCIUM 8.8 mg/dL (8.5-10.1); CARBON DIOXIDE 30.9 mmol/L (21.0-32.0); PROTEIN - SERUM 7.1 g/dL (6.4-8.2)
[2018-11-07 18:01] VITALS: BP 182/86
[2018-11-07 20:19] VITALS: BP 172/79
[2018-11-07 23:04] VITALS: BP 172/79; BMI 36.5
[2018-11-08 00:29] VITALS: BP 130/75
[2018-11-08 04:31] VITALS: BP 152/68
[2018-11-08 06:23] LABS: BASOPHILS 0.1 % (0-2); EOSINOPHILS 0 % (0-7); HEMATOCRIT 29.2 % (36.0-48.0); IMMATURE GRANULOCYTES 0.3 % (0-5); LYMPHOCYTES 8.5 % (15-50); MCH 28.3 pg (26.0-34.0); MCHC 30.8 g/dL (31.0-37.0); MCV 91.8 fL (80.0-100.0); MEAN PLATELET VOLUME 11.5 fL (7.4-10.4); MONOCYTES 13.1 % (2-11); PLATELET COUNT 291 10x3/uL (130-400); RBC 3.18 10x6/uL (4.00-5.40); RDW 14.9 % (11.5-14.5); WBC 10.2 10x3/uL (4.8-10.8)
[2018-11-08 06:33] LABS: ANION GAP 10.3 mmol/L (8-16); CALCIUM 8.1 mg/dL (8.5-10.1); CARBON DIOXIDE 30.7 mmol/L (21.0-32.0)
[2018-11-08 08:32] VITALS: BP 136/56
[2018-11-08 13:15] VITALS: BP 118/43
[2018-11-08 13:53] VITALS: Ht 167.6 cm; Wt 102.5 kg
[2018-11-08 17:33] VITALS: BP 154/65
[2018-11-08 20:19] VITALS: BP 136/49
[2018-11-08] MEDS ORDERED: BEVESPI AEROS10.7 GM INH (20:35)
[2018-11-09 00:58] VITALS: BP 127/49
[2018-11-09 04:54] VITALS: BP 152/56
[2018-11-09 06:32] LABS: BASOPHILS 0.4 % (0-2); EOSINOPHILS 3.5 % (0-7); HEMATOCRIT 29.7 % (36.0-48.0); IMMATURE GRANULOCYTES 0.3 % (0-5); LYMPHOCYTES 11.3 % (15-50); MCH 28.2 pg (26.0-34.0); MCHC 30.3 g/dL (31.0-37.0); MCV 93.1 fL (80.0-100.0); MEAN PLATELET VOLUME 11.2 fL (7.4-10.4); MONOCYTES 17.7 % (2-11); NEUTROPHILS 66.8 % (40-80); PLATELET COUNT 275 10x3/uL (130-400); RBC 3.19 10x6/uL (4.00-5.40); RDW 15.3 % (11.5-14.5); WBC 11.3 10x3/uL (4.8-10.8)
[2018-11-09 06:59] LABS: ALBUMIN 2.9 g/dL (3.4-5.0); ANION GAP 10.2 mmol/L (8-16); BILIRUBIN - TOTAL 0.21 mg/dL (0.2-1.3); CALCIUM 8.4 mg/dL (8.5-10.1); CARBON DIOXIDE 30.7 mmol/L (21.0-32.0); POTASSIUM - SERUM 3.9 mmol/L (3.5-5.1); PROTEIN - SERUM 6.5 g/dL (6.4-8.2)
[2018-11-09 08:58] VITALS: BP 134/58
[2018-11-09 12:49] VITALS: BP 154/51
--- NOTE | 2018-11-09 14:23 | MORECARE ---
CASE MANAGEMENT DISCHARGE SUMMARY PATIENT: ANTONIO BARAJAS UNIT: [id number] ADM DATE: 11/07/18 AGE: 78 : 39 SEX: F ROOM/BED: D.2225 AUTHOR: PAUL TORREZ PHYSICIAN: REFERRING PHYSICIAN: KASIA BAGLEY MD DATE OF SERVICE: 11/09/18 Discharge Plan Patient Name: ANTONIO BARAJAS Facility: [facility]:[place] : 1940 Planned Disposition: Inpatient Rehab Anticipated Discharge Date: Discharge Date: Expected LOS: Initial Reviewer: [email or web address] Initial Review Date: 11/09/2018 Generated: 11/09/18 3:23 pm Patient Name: ANTONIO BARAJAS Page 39166 at 1423 All edits/amendments must be made on the electronic document DICTATION DATE: 11/09/181421 RECYCLABLE MATERIALS SORTER: FLAKO 11/09/181421 RPT#: [id number] DC DATE: STATUS: ADM IN [facility] [address] [place] [address] END OF REPORT
--- NOTE | 2018-11-09 14:32 | MORECARE ---
CASE MANAGEMENT DISCHARGE SUMMARY PATIENT: ANTONIO BARAJAS UNIT: [id number] ADM DATE: 11/07/18 AGE: 78 : 39 SEX: F ROOM/BED: D.2225 AUTHOR: LORE,DOC PHYSICIAN: REFERRING PHYSICIAN: KASIA BAGLEY MD DATE OF SERVICE: 11/09/18 Discharge Plan Patient Name: ANTONIO BARAJAS Facility: [facility]:[place] : 1940 Planned Disposition: Inpatient Rehab Anticipated Discharge Date: Discharge Date: Expected LOS: Initial Reviewer: [email or web address] Initial Review Date: 11/09/2018 Generated: 11/09/18 3:32 pm Comments DCP- Discharge Planning Updated by [email or web address]: Nasima Sotelo on 11/09/18 1:[address] CM met with patient to discuss discharge planning, she is alone in the room. She states she lives alone in a [address]. States their is a ramp to the front door. States she has a private duty caregiver that comes in Wednesday for 5 hours and Wednesday through Wednesday 4 hours. States her private aide assists with bathing and cooking. States her son, Niles, will take her home on discharge. I discussed the availability of rehab, SNF, home health and additional DME. She states if she qualifies for inpatient rehab, she would like to go here at [facility]. I ordered a rehab screen and OT screen. CM will continue to follow and assist with discharge planning/needs. DCPIA - Discharge Planning Initial Assessment Updated by [email or web address]: Nasima Sotelo on 11/09/18 2:23 pm * Is the patient Alert and Oriented? Yes * How many steps to enter\exit or inside your home? Ramp/0 * PCP Dr. Light * Pharmacy [facility] [address] * Preadmission Environment Home Alone * ADLs Partial Dependent * Partial ADLs (Assistance needed) Ambulation Bathing * Equipment Bedside Commode Nebulizer Other Oxygen Rolling Walker * Other Equipment Portable oxygen Rollator walker * List name and contact numbers for known caregivers / representatives who currently or will assist patient after discharge: Niles Da Silva [facility] - [phone] Moses Baldwin [facility] - [phone] * Verbal permission to speak to the caregivers and representatives has been obtained from the patient. Yes * Community resources currently utilized Private Duty Care * Please name any agencies selected above. Private duty care - unsure of name [employer] is DME for oxygen * Additional services required to return to the preadmission environment? Yes * Can the patient safely return to the preadmission environment? No * Has this patient been hospitalized within the prior 30 days at any hospital? No Last DP export: 11/09/18 1:23 p Patient Name: ANTONIO BARAJAS Page 33000 at 1432 All edits/amendments must be made on the electronic document DICTATION DATE: 11/09/181431 DEHYDRATOR TENDER: FLAKO 11/09/181431 RPT#: [id number] DC DATE: STATUS: ADM IN [facility] [address] [place] [address] END OF REPORT
[2018-11-09 15:58] VITALS: BP 134/48
[2018-11-09 20:49] VITALS: BP 125/56
[2018-11-10 00:39] VITALS: BP 135/62
[2018-11-10 04:54] VITALS: BP 135/56
[2018-11-10 07:23] LABS: BASOPHILS 0.2 % (0-2); EOSINOPHILS 3.9 % (0-7); HEMOGLOBIN 8.5 g/dL (12-16); IMMATURE GRANULOCYTES 0.4 % (0-5); LYMPHOCYTES 11.4 % (15-50); MCH 28.2 pg (26.0-34.0); MCHC 30.4 g/dL (31.0-37.0); MEAN PLATELET VOLUME 11.4 fL (7.4-10.4); MONOCYTES 19.7 % (2-11); NEUTROPHILS 64.4 % (40-80); PLATELET COUNT 257 10x3/uL (130-400); RBC 3.01 10x6/uL (4.00-5.40); RDW 15.3 % (11.5-14.5); WBC 10.8 10x3/uL (4.8-10.8)
[2018-11-10 07:50] LABS: ALBUMIN 2.6 g/dL (3.4-5.0); ANION GAP 8.1 mmol/L (8-16); BILIRUBIN - TOTAL 0.29 mg/dL (0.2-1.3); CALCIUM 8.3 mg/dL (8.5-10.1); CARBON DIOXIDE 32.9 mmol/L (21.0-32.0); PROTEIN - SERUM 6.2 g/dL (6.4-8.2)
[2018-11-10 08:22] VITALS: BP 149/53
[2018-11-10 13:15] VITALS: BP 145/62
[2018-11-10 16:54] VITALS: BP 153/53
[2018-11-10 21:48] VITALS: BP 142/42
[2018-11-11 01:27] VITALS: BP 154/60
[2018-11-11 05:13] LABS: BASOPHILS 0.3 % (0-2); EOSINOPHILS 4.2 % (0-7); HEMATOCRIT 28.1 % (36.0-48.0); HEMOGLOBIN 8.5 g/dL (12-16); IMMATURE GRANULOCYTES 0.3 % (0-5); LYMPHOCYTES 11.9 % (15-50); MCH 28.3 pg (26.0-34.0); MCHC 30.2 g/dL (31.0-37.0); MCV 93.7 fL (80.0-100.0); MEAN PLATELET VOLUME 11.4 fL (7.4-10.4); MONOCYTES 15.6 % (2-11); NEUTROPHILS 67.7 % (40-80); PLATELET COUNT 253 10x3/uL (130-400); RDW 15.1 % (11.5-14.5); WBC 11.2 10x3/uL (4.8-10.8)
[2018-11-11 05:20] LABS: ALBUMIN 2.4 g/dL (3.4-5.0); ANION GAP 5.4 mmol/L (8-16); BILIRUBIN - TOTAL 0.45 mg/dL (0.2-1.3); CALCIUM 8.6 mg/dL (8.5-10.1); CARBON DIOXIDE 35.9 mmol/L (21.0-32.0); CREATININE - SERUM 0.9 mg/dL (0.6-1.3); POTASSIUM - SERUM 4.3 mmol/L (3.5-5.1); PROTEIN - SERUM 6.3 g/dL (6.4-8.2)
[2018-11-11 06:07] VITALS: BP 135/51
[2018-11-11 08:25] VITALS: BP 140/64
[2018-11-11 11:59] VITALS: BP 127/95
[2018-11-11 16:32] VITALS: BP 138/48
[2018-11-11 20:43] VITALS: BP 164/58
[2018-11-12 00:52] VITALS: BP 114/48
[2018-11-12 04:48] VITALS: BP 163/72
[2018-11-12 06:35] LABS: BASOPHILS 0.2 % (0-2); EOSINOPHILS 3.6 % (0-7); HEMATOCRIT 27.5 % (36.0-48.0); HEMOGLOBIN 8.3 g/dL (12-16); IMMATURE GRANULOCYTES 0.3 % (0-5); LYMPHOCYTES 11.2 % (15-50); MCH 27.9 pg (26.0-34.0); MCHC 30.2 g/dL (31.0-37.0); MCV 92.3 fL (80.0-100.0); MEAN PLATELET VOLUME 11.4 fL (7.4-10.4); MONOCYTES 15.5 % (2-11); NEUTROPHILS 69.2 % (40-80); PLATELET COUNT 282 10x3/uL (130-400); RBC 2.98 10x6/uL (4.00-5.40); RDW 14.6 % (11.5-14.5); WBC 11.8 10x3/uL (4.8-10.8)
[2018-11-12 06:53] LABS: ALBUMIN 2.4 g/dL (3.4-5.0); ANION GAP 7.8 mmol/L (8-16); BILIRUBIN - TOTAL 0.38 mg/dL (0.2-1.3); CALCIUM 8.8 mg/dL (8.5-10.1); CARBON DIOXIDE 33.3 mmol/L (21.0-32.0); POTASSIUM - SERUM 4.1 mmol/L (3.5-5.1); PROTEIN - SERUM 6.3 g/dL (6.4-8.2)
[2018-11-12 08:58] VITALS: BP 149/56
[2018-11-12 14:14] VITALS: BP 175/72
[2018-11-12 17:27] VITALS: BP 165/61
[2018-11-12 20:18] VITALS: BP 183/73
[2018-11-13 00:37] VITALS: BP 162/54
[2018-11-13 05:34] VITALS: BP 147/64
[2018-11-13 05:50] LABS: BASOPHILS 0.2 % (0-2); EOSINOPHILS 4.1 % (0-7); HEMATOCRIT 28.1 % (36.0-48.0); HEMOGLOBIN 8.6 g/dL (12-16); IMMATURE GRANULOCYTES 0.2 % (0-5); LYMPHOCYTES 11.9 % (15-50); MCH 28.1 pg (26.0-34.0); MCHC 30.6 g/dL (31.0-37.0); MCV 91.8 fL (80.0-100.0); MEAN PLATELET VOLUME 11.3 fL (7.4-10.4); MONOCYTES 15.9 % (2-11); NEUTROPHILS 67.7 % (40-80); PLATELET COUNT 299 10x3/uL (130-400); RBC 3.06 10x6/uL (4.00-5.40); RDW 14.9 % (11.5-14.5); WBC 10.7 10x3/uL (4.8-10.8)
[2018-11-13 06:14] LABS: ALBUMIN 2.6 g/dL (3.4-5.0); BILIRUBIN - TOTAL 0.44 mg/dL (0.2-1.3); CALCIUM 9.2 mg/dL (8.5-10.1); CARBON DIOXIDE 37.5 mmol/L (21.0-32.0); POTASSIUM - SERUM 4.5 mmol/L (3.5-5.1); PROTEIN - SERUM 6.5 g/dL (6.4-8.2)
[2018-11-13 08:30] VITALS: BP 170/69
[2018-11-13 13:20] VITALS: BP 152/61
[2018-11-13 16:12] VITALS: BP 139/53
[2018-11-13 20:33] VITALS: BP 139/39
[2018-11-14 05:08] VITALS: BP 140/50
[2018-11-14 06:26] LABS: BASOPHILS 0.2 % (0-2); EOSINOPHILS 5.5 % (0-7); HEMOGLOBIN 8.6 g/dL (12-16); IMMATURE GRANULOCYTES 0.3 % (0-5); MCH 28.1 pg (26.0-34.0); MCHC 30.7 g/dL (31.0-37.0); MCV 91.5 fL (80.0-100.0); MEAN PLATELET VOLUME 11.1 fL (7.4-10.4); MONOCYTES 14.5 % (2-11); NEUTROPHILS 66.5 % (40-80); PLATELET COUNT 333 10x3/uL (130-400); RBC 3.06 10x6/uL (4.00-5.40); RDW 14.9 % (11.5-14.5); WBC 10.1 10x3/uL (4.8-10.8)
[2018-11-14 07:11] LABS: ALBUMIN 2.6 g/dL (3.4-5.0); ANION GAP 8.8 mmol/L (8-16); BILIRUBIN - TOTAL 0.33 mg/dL (0.2-1.3); CALCIUM 9.5 mg/dL (8.5-10.1); CARBON DIOXIDE 35.4 mmol/L (21.0-32.0); CREATININE - SERUM 1.1 mg/dL (0.6-1.3); POTASSIUM - SERUM 4.2 mmol/L (3.5-5.1); PROTEIN - SERUM 6.6 g/dL (6.4-8.2)
[2018-11-14 09:11] VITALS: BP 149/57
--- NOTE | 2018-11-14 10:11 | MORECARE ---
CASE MANAGEMENT DISCHARGE SUMMARY PATIENT: ANTONIO BARAJAS UNIT: [id number] ADM DATE: 11/07/18 AGE: 78 : 39 SEX: F ROOM/BED: D.2225 AUTHOR: LORE,DOC PHYSICIAN: REFERRING PHYSICIAN: KASIA BAGLEY MD DATE OF SERVICE: 11/14/18 Discharge Plan Patient Name: ANTONIO BARAJAS Facility: [facility]:[place] : 1940 Planned Disposition: Inpatient Rehab Anticipated Discharge Date: Discharge Date: Expected LOS: Initial Reviewer: [email or web address] Initial Review Date: 11/09/2018 Generated: 11/14/18 11:10 am Comments DCP- Discharge Planning Updated by [email or web address]: Ave Drake on 11/14/18 9:[address] PT WAS DENIED INPT REHAB. CM SPOKE TO PT ABOUT SKILLED FACILITES AND PT STATED SHE WANTS TO GO HOME WITH HH FOR PT INSTEAD. DCP- Discharge Planning Updated by [email or web address]: Nasima Deepak on 11/09/18 1:[address] CM met with patient to discuss discharge planning, she is alone in the room. She states she lives alone in a [address]. States their is a ramp to the front door. States she has a private duty caregiver that comes in Wednesday for 5 hours and Wednesday through Wednesday 4 hours. States her private aide assists with bathing and cooking. States her son, Niles, will take her home on discharge. I discussed the availability of rehab, SNF, home health and additional DME. She states if she qualifies for inpatient rehab, she would like to go here at [facility]. I ordered a rehab screen and OT screen. CM will continue to follow and assist with discharge planning/needs. DCPIA - Discharge Planning Initial Assessment Updated by [email or web address]: Nasima Deepak on 11/09/18 2:23 pm * Is the patient Alert and Oriented? Yes * How many steps to enter\exit or inside your home? Ramp/0 * PCP Dr. Light * Pharmacy [facility] [address] * Preadmission Environment Home Alone * ADLs Partial Dependent * Partial ADLs (Assistance needed) Ambulation Bathing * Equipment Bedside Commode Nebulizer Other Oxygen Rolling Walker * Other Equipment Portable oxygen Rollator walker * List name and contact numbers for known caregivers / representatives who currently or will assist patient after discharge: Niles Da Silva - [place] - [phone] Moses garrett - [phone] * Verbal permission to speak to the caregivers and representatives has been obtained from the patient. Yes * Community resources currently utilized Private Duty Care * Please name any agencies selected above. Private duty care - unsure of name [employer] is DME for oxygen * Additional services required to return to the preadmission environment? Yes * Can the patient safely return to the preadmission environment? No * Has this patient been hospitalized within the prior 30 days at any hospital? No Last DP export: 11/09/18 1:32 p Patient Name: ANTONIO BARAJAS Page 53923 at 1011 All edits/amendments must be made on the electronic document DICTATION DATE: 11/14/18 1010 CLEARANCE COORDINATOR: FLAKO 11/14/18 1010 RPT#: [id number] DC DATE: STATUS: ADM IN [facility] [address] [place] [address] END OF REPORT
[2018-11-14] MEDS ORDERED: LEVAQUIN750 MG PO (10:21)
[2018-11-14] MEDS ORDERED: MIRALAX17 GM PO (10:22)
[2018-11-14] MEDS ORDERED: SINGULAIR10 MG PO (10:25)
[2018-11-14] MEDS ORDERED: MUCINEX600 MG PO (10:25)
[2018-11-14] MEDS ORDERED: DALIRESP500 MCG PO (10:25)
--- NOTE | 2018-11-14 10:49 | MORECARE ---
CASE MANAGEMENT DISCHARGE SUMMARY PATIENT: ANTONIO BARAJAS UNIT: [id number] ADM DATE: 11/07/18 AGE: 78 : 39 SEX: F ROOM/BED: D.2225 AUTHOR: LORE,DOC PHYSICIAN: REFERRING PHYSICIAN: KASIA BAGLEY MD DATE OF SERVICE: 11/14/18 Discharge Plan Patient Name: ANTONIO BARAJAS Facility: [facility]:[place] : 1940 Planned Disposition: Inpatient Rehab Anticipated Discharge Date: Discharge Date: Expected LOS: Initial Reviewer: [email or web address] Initial Review Date: 11/09/2018 Generated: 11/14/18 11:49 am Comments DCP- Discharge Planning Updated by [email or web address]: Ave Drake on 11/14/18 9:[address] PT WAS DENIED INPT REHAB. CM SPOKE TO PT ABOUT SKILLED FACILITES AND PT STATED SHE WANTS TO GO HOME WITH HH FOR PT INSTEAD. DCP- Discharge Planning Updated by [email or web address]: Nasima Deepak on 11/09/18 1:[address] CM met with patient to discuss discharge planning, she is alone in the room. She states she lives alone in a [address]. States their is a ramp to the front door. States she has a private duty caregiver that comes in Wednesday for 5 hours and Wednesday through Wednesday 4 hours. States her private aide assists with bathing and cooking. States her son, Niles, will take her home on discharge. I discussed the availability of rehab, SNF, home health and additional DME. She states if she qualifies for inpatient rehab, she would like to go here at [facility]. I ordered a rehab screen and OT screen. CM will continue to follow and assist with discharge planning/needs. DCPIA - Discharge Planning Initial Assessment Updated by [email or web address]: Nasima Deepak on 11/09/18 2:23 pm * Is the patient Alert and Oriented? Yes * How many steps to enter\exit or inside your home? Ramp/0 * PCP Dr. Light * Pharmacy [facility] [address] * Preadmission Environment Home Alone * ADLs Partial Dependent * Partial ADLs (Assistance needed) Ambulation Bathing * Equipment Bedside Commode Nebulizer Other Oxygen Rolling Walker * Other Equipment Portable oxygen Rollator walker * List name and contact numbers for known caregivers / representatives who currently or will assist patient after discharge: Niles Da Silva - [place] - [phone] Moses garrett - [phone] * Verbal permission to speak to the caregivers and representatives has been obtained from the patient. Yes * Community resources currently utilized Private Duty Care * Please name any agencies selected above. Private duty care - unsure of name [employer] is DME for oxygen * Additional services required to return to the preadmission environment? Yes * Can the patient safely return to the preadmission environment? No * Has this patient been hospitalized within the prior 30 days at any hospital? No Last DP export: 11/14/18 9:11 a Patient Name: ANTONIO BARAJAS Page 35795 at 1049 All edits/amendments must be made on the electronic document DICTATION DATE: 11/14/188 HEAVY EQUIPMENT SERVICE MANAGER: FLAKO 11/14/18 1048 RPT#: [id number] DC DATE: STATUS: ADM IN [facility] [address] [place] [address] END OF REPORT
--- NOTE | 2018-11-14 11:12 | MORECARE ---
CASE MANAGEMENT DISCHARGE SUMMARY PATIENT: ANTONIO BARAJAS UNIT: [id number] ADM DATE: 11/07/18 AGE: 78 : 39 SEX: F ROOM/BED: D.2225 AUTHOR: LORE,DOC PHYSICIAN: REFERRING PHYSICIAN: KASIA BAGLEY MD DATE OF SERVICE: 11/14/18 Discharge Plan Patient Name: ANTONIO BARAJAS Facility: [facility]:[place] : 1940 Planned Disposition: Inpatient Rehab Anticipated Discharge Date: Discharge Date: Expected LOS: Initial Reviewer: [id number] Initial Review Date: 11/09/2018 Generated: 11/14/18 12:12 pm Comments DCP- Discharge Planning Updated by [id number]: Ave [facility] on 11/14/18 10:[address] PT HAS [facility] PRESENTLY AND HAS DECIDED TO GO HOME WITH HH FOR NURSING , PT AND OT. ORDERS FAXED AND OG SIGNED DCP- Discharge Planning Updated by [email or web address]: Ave [facility] on 11/14/18 9:[address] PT WAS DENIED INPT REHAB. CM SPOKE TO PT ABOUT SKILLED FACILITES AND PT STATED SHE WANTS TO GO HOME WITH HH FOR PT INSTEAD. DCP- Discharge Planning Updated by [id number]: Nasima Sotelo on 11/09/18 1:[address] CM met with patient to discuss discharge planning, she is alone in the room. She states she lives alone in a [address]. States their is a ramp to the front door. States she has a private duty caregiver that comes in Wednesday for 5 hours and Wednesday through Wednesday 4 hours. States her private aide assists with bathing and cooking. States her son, Niles, will take her home on discharge. I discussed the availability of rehab, SNF, home health and additional DME. She states if she qualifies for inpatient rehab, she would like to go here at [facility]. I ordered a rehab screen and OT screen. CM will continue to follow and assist with discharge planning/needs. DCPIA - Discharge Planning Initial Assessment Updated by [id number]: Nasima Sotelo on 11/09/18 2:23 pm * Is the patient Alert and Oriented? Yes * How many steps to enter\exit or inside your home? Ramp/0 * PCP Dr. Light * Pharmacy [facility] [address] * Preadmission Environment Home Alone * ADLs Partial Dependent * Partial ADLs (Assistance needed) Ambulation Bathing * Equipment Bedside Commode Nebulizer Other Oxygen Rolling Walker * Other Equipment Portable oxygen Rollator walker * List name and contact numbers for known caregivers / representatives who currently or will assist patient after discharge: Niles Da Silva [facility] - [phone] [facility] [phone] * Verbal permission to speak to the caregivers and representatives has been obtained from the patient. Yes * Community resources currently utilized Private Duty Care * Please name any agencies selected above. Private duty care - unsure of name Julio is DME for oxygen * Additional services required to return to the preadmission environment? Yes * Can the patient safely return to the preadmission environment? No * Has this patient been hospitalized within the prior 30 days at any hospital? No Last DP export: 11/14/18 9:49 a Patient Name: ANTONIO BARAJAS Page [id number] at 1112 All edits/amendments must be made on the electronic document DICTATION DATE: 11/14/18 1111 LAUNDRY SUPERINTENDENT: FLAKO 11/14/18 1111 RPT#: [id number] DC DATE: STATUS: ADM IN [facility] [address] [place] [address] END OF REPORT
[2018-11-14 11:52] VITALS: BP 174/68
[2018-11-14] MEDS ORDERED: HYDROCODON-ACE1 EAC7 PO (13:47)
== END 2018-11-14 14:50 | disposition home health service (06) | DRG 493 ==
LOC: D.ER 10:36 → D.MS 16:44
PROVIDERS: Family Medicine; Internal Medicine Nephrology; Orthopaedic Surgery; ADMIT Emergency Medicine; ATTEND Emergency Medicine
PROC: 0QSH04Z Reposition Left Tibia with Internal Fixation Device, Open Approach (ICD-10-PCS; 2018-11-07)
PROC: 0QSH04Z Reposition Left Tibia with Internal Fixation Device, Open Approach (ICD-10-PCS; 2018-11-07)
PROC: 0QSK04Z Reposition Left Fibula with Internal Fixation Device, Open Approach (ICD-10-PCS; principal; 2018-11-07 15:15)
DX: S82.852A Displaced trimalleolar fracture of left lower leg, initial encounter for closed fracture (principal); J96.11 Chronic respiratory failure with hypoxia; D62 Acute posthemorrhagic anemia; W19.XXXA Unspecified fall, initial encounter; I10 Essential (primary) hypertension; I25.10 Atherosclerotic heart disease of native coronary artery without angina pectoris; J44.9 Chronic obstructive pulmonary disease, unspecified; K21.9 Gastro-esophageal reflux disease without esophagitis; M54.5 Low back pain

== ENCOUNTER → 2018-12-21 15:36 | Outpatient (CLI) | payer MEDICARE, MEDICAID ==
[2018-11-08 13:53] VITALS: BMI 36.4
[~2018-12-21 15:36] MED LIST changes: +BEVESPI AEROS10.7 GM INH; +DALIRESP500 MCG PO; +HYDROCODON-ACE1 EAC7 PO; +MIRALAX17 GM PO; +MUCINEX600 MG PO; +SINGULAIR10 MG PO
[2018-12-21 15:50] LABS: BASOPHILS 0.4 % (0-2); HEMATOCRIT 31.1 % (36.0-48.0); HEMOGLOBIN 9.7 g/dL (12-16); IMMATURE GRANULOCYTES 0.1 % (0-5); LYMPHOCYTES 20.6 % (15-50); MCH 27.3 pg (26.0-34.0); MCHC 31.2 g/dL (31.0-37.0); MCV 87.6 fL (80.0-100.0); MEAN PLATELET VOLUME 11.2 fL (7.4-10.4); MONOCYTES 14.2 % (2-11); NEUTROPHILS 58.7 % (40-80); PLATELET COUNT 302 10x3/uL (130-400); RBC 3.55 10x6/uL (4.00-5.40); RDW 14.9 % (11.5-14.5); WBC 8.3 10x3/uL (4.8-10.8)
[2018-12-21 17:20] LABS: ERYTHROCYTE SEDIMENTATION RATE 72 mm/hr (0-30)
== END | disposition home or self-care (01) ==
LOC: D.LABREF 15:36
PROVIDERS: ATTEND Orthopaedic Surgery
DX: L08.9 Local infection of the skin and subcutaneous tissue, unspecified (principal)

== ENCOUNTER → 2018-12-26 13:15 | Outpatient (CLI) | payer MEDICARE, MEDICAID ==
[2018-11-08 13:53] VITALS: BMI 36.4
[2018-12-26 13:46] LABS: BASOPHILS 0.6 % (0-2); EOSINOPHILS 6.3 % (0-7); HEMATOCRIT 32.2 % (36.0-48.0); IMMATURE GRANULOCYTES 0.4 % (0-5); LYMPHOCYTES 24.4 % (15-50); MCH 27.2 pg (26.0-34.0); MCHC 31.1 g/dL (31.0-37.0); MCV 87.5 fL (80.0-100.0); MEAN PLATELET VOLUME 11.5 fL (7.4-10.4); MONOCYTES 12.8 % (2-11); NEUTROPHILS 55.5 % (40-80); PLATELET COUNT 338 10x3/uL (130-400); RBC 3.68 10x6/uL (4.00-5.40); RDW 14.8 % (11.5-14.5); WBC 8.3 10x3/uL (4.8-10.8)
[2018-12-26 15:03] LABS: ERYTHROCYTE SEDIMENTATION RATE 63 mm/hr (0-30)
== END | disposition home or self-care (01) ==
LOC: D.LABREF 13:15
PROVIDERS: ATTEND Orthopaedic Surgery
DX: S82.855D Nondisplaced trimalleolar fracture of left lower leg, subsequent encounter for closed fracture with routine healing (principal); J96.11 Chronic respiratory failure with hypoxia; J44.9 Chronic obstructive pulmonary disease, unspecified; I12.9 Hypertensive chronic kidney disease with stage 1 through stage 4 chronic kidney disease, or unspecified chronic kidney disease

== ENCOUNTER → 2019-01-02 11:01 | Outpatient (CLI) | payer MEDICARE, MEDICAID ==
[2018-11-08 13:53] VITALS: BMI 36.4
[2019-01-02 14:26] LABS: BASOPHILS 0.3 % (0-2); EOSINOPHILS 6.8 % (0-7); HEMATOCRIT 32.3 % (36.0-48.0); HEMOGLOBIN 9.9 g/dL (12-16); IMMATURE GRANULOCYTES 0.3 % (0-5); MCHC 30.7 g/dL (31.0-37.0); MEAN PLATELET VOLUME 11.3 fL (7.4-10.4); MONOCYTES 11.9 % (2-11); NEUTROPHILS 60.7 % (40-80); PLATELET COUNT 329 10x3/uL (130-400); RBC 3.67 10x6/uL (4.00-5.40); RDW 15.1 % (11.5-14.5); WBC 8.7 10x3/uL (4.8-10.8)
[2019-01-02 15:40] LABS: ERYTHROCYTE SEDIMENTATION RATE 48 mm/hr (0-30)
== END | disposition home or self-care (01) ==
LOC: D.LABREF 11:01
PROVIDERS: ATTEND Orthopaedic Surgery
DX: S82.855D Nondisplaced trimalleolar fracture of left lower leg, subsequent encounter for closed fracture with routine healing (principal); J96.11 Chronic respiratory failure with hypoxia; J44.9 Chronic obstructive pulmonary disease, unspecified; I12.9 Hypertensive chronic kidney disease with stage 1 through stage 4 chronic kidney disease, or unspecified chronic kidney disease

== ENCOUNTER 2019-01-02 15:06 | Emergency (ER) | payer MEDICARE, MEDICAID ==
[~2019-01-02] VITALS: Ht 167.6 cm; Wt 102.7 kg
[2019-01-02 15:24] VITALS: Ht 167.6 cm; Wt 102.7 kg
[2019-01-02 16:02] LABS: BASOPHILS 0.4 % (0-2); EOSINOPHILS 6.1 % (0-7); HEMATOCRIT 32.6 % (36.0-48.0); IMMATURE GRANULOCYTES 0.2 % (0-5); LYMPHOCYTES 21.6 % (15-50); MCH 27.2 pg (26.0-34.0); MCHC 30.7 g/dL (31.0-37.0); MCV 88.6 fL (80.0-100.0); MEAN PLATELET VOLUME 10.7 fL (7.4-10.4); MONOCYTES 9.5 % (2-11); NEUTROPHILS 62.2 % (40-80); PLATELET COUNT 320 10x3/uL (130-400); RBC 3.68 10x6/uL (4.00-5.40); RDW 15.2 % (11.5-14.5); WBC 10.3 10x3/uL (4.8-10.8)
[2019-01-02 16:10] LABS: INR 1.06 (0.85-1.17); PROTIME 13.3 SECONDS (11.6-15.0)
[2019-01-02 16:11] LABS: APTT 28.3 SECONDS (22.8-39.4)
[2019-01-02 16:15] LABS: ALBUMIN 3.5 g/dL (3.4-5.0); ANION GAP 9.5 mmol/L (8-16); BILIRUBIN - TOTAL 0.21 mg/dL (0.2-1.3); CALCIUM 9.4 mg/dL (8.5-10.1); CARBON DIOXIDE 33.8 mmol/L (21.0-32.0); CREATININE - SERUM 1.1 mg/dL (0.6-1.3); POTASSIUM - SERUM 4.3 mmol/L (3.5-5.1); PROTEIN - SERUM 7.8 g/dL (6.4-8.2)
[2019-01-02 17:30] VITALS: BP 114/63
== END 2019-01-02 17:31 | disposition home or self-care (01) ==
LOC: D.ER 15:06
PROVIDERS: Family Medicine
DX: Z00.00 Encounter for general adult medical examination without abnormal findings (principal); J44.9 Chronic obstructive pulmonary disease, unspecified; I10 Essential (primary) hypertension; K21.9 Gastro-esophageal reflux disease without esophagitis

== ENCOUNTER 2019-03-23 11:14 | Inpatient (IN) | payer MEDICARE, MEDICAID ==
[~2019-03-23] VITALS: Ht 167.6 cm; Wt 102.1 kg
--- NOTE | 2019-03-23 11:34 | NUR ---
OCCULT STOOL POSITIVE
[2019-03-23 12:14] LABS: ANION GAP 8.9 mmol/L (8-16); CALCIUM 9.3 mg/dL (8.5-10.1); CARBON DIOXIDE 30.2 mmol/L (21.0-32.0); CREATININE - SERUM 1.1 mg/dL (0.6-1.3); POTASSIUM - SERUM 4.1 mmol/L (3.5-5.1)
[2019-03-23 12:20] LABS: ALBUMIN 3.1 g/dL (3.4-5.0); BILIRUBIN - TOTAL 0.25 mg/dL (0.2-1.3)
[2019-03-23 12:57] LABS: INR 0.99 (0.85-1.17)
[2019-03-23 13:04] LABS: BASOPHILS 0.3 % (0-2); EOSINOPHILS 4.6 % (0-7); HEMATOCRIT 37.1 % (36.0-48.0); HEMOGLOBIN 11.3 g/dL (12-16); IMMATURE GRANULOCYTES 0.2 % (0-5); LYMPHOCYTES 18.3 % (15-50); MCH 29.3 pg (26.0-34.0); MCHC 30.5 g/dL (31.0-37.0); MCV 96.1 fL (80.0-100.0); MEAN PLATELET VOLUME 11.5 fL (7.4-10.4); MONOCYTES 13.2 % (2-11); NEUTROPHILS 63.4 % (40-80); PLATELET COUNT 281 10x3/uL (130-400); RBC 3.86 10x6/uL (4.00-5.40); RDW 17.6 % (11.5-14.5); WBC 9.7 10x3/uL (4.8-10.8)
[2019-03-23 14:41] VITALS: BP 175/62
[2019-03-23] MEDS ORDERED: ZANAFLEX2 M1 PO (15:15)
[2019-03-23] MEDS ORDERED: MYRBETRIQ50 MG PO (15:15)
[2019-03-23 16:10] VITALS: BP 145/65
[2019-03-23 16:11] VITALS: BP 145/65; BMI 36.4
[2019-03-23 19:13] LABS: % SATURATION 19 % (15-55); IRON 51 ug/dl (35-150); TOTAL IRON BIND CAPACITY 257 ug/dl (260-445); UNSAT IRON BIND CAPACITY 206 ug/dl (150-375)
--- NOTE | 2019-03-23 19:26 | NUR ---
EVENING ROUNDS COMPLETE, PT LAYING IN BED, NO SIGNS OF DISTRESS. AAOX4, PT DENIES ANY PAIN OR NEEDS AT THIS TIME. PROTONIX DTT INFUSING AT 10 ML/HR. CL IN REACH, BED IN LOWEST POSITION.
[2019-03-23 20:00] VITALS: BP 146/58
[2019-03-24] VITALS: BP 105/44
[2019-03-24 04:00] VITALS: BP 128/56
--- NOTE | 2019-03-24 04:53 | NUR ---
PT IV TO LFA INFILTRATED, LFA PIV REMOVED WITH TIP INTACT. PT TOLERATED WELL, FLUIDS STARTED IN PT EXISTING PIV TO RAC.
[2019-03-24 06:14] LABS: ALBUMIN 2.7 g/dL (3.4-5.0); ANION GAP 10.5 mmol/L (8-16); BILIRUBIN - TOTAL 0.24 mg/dL (0.2-1.3); CALCIUM 8.9 mg/dL (8.5-10.1); CARBON DIOXIDE 29.4 mmol/L (21.0-32.0); CREATININE - SERUM 1.1 mg/dL (0.6-1.3); POTASSIUM - SERUM 3.9 mmol/L (3.5-5.1); PROTEIN - SERUM 6.2 g/dL (6.4-8.2)
[2019-03-24 06:28] LABS: BASOPHILS 0.4 % (0-2); EOSINOPHILS 4.1 % (0-7); HEMATOCRIT 32.6 % (36.0-48.0); HEMOGLOBIN 9.9 g/dL (12-16); IMMATURE GRANULOCYTES 0.2 % (0-5); LYMPHOCYTES 16.5 % (15-50); MCH 29.1 pg (26.0-34.0); MCHC 30.4 g/dL (31.0-37.0); MCV 95.9 fL (80.0-100.0); MEAN PLATELET VOLUME 11.4 fL (7.4-10.4); NEUTROPHILS 68.8 % (40-80); PLATELET COUNT 232 10x3/uL (130-400); RDW 17.6 % (11.5-14.5); WBC 8.5 10x3/uL (4.8-10.8)
[2019-03-24 08:00] VITALS: BP 123/63
--- NOTE | 2019-03-24 08:49 | NUR ---
RECEIVED PT ASLEEP IN BED BUT AROUSES EASY. STATES DIDNT SLEEP TO WELL. HAD SOME NAUSEA AND LEG CRAMPS IN NIGHT. XANAFLEX GIVEN.
[2019-03-24 09:34] LABS: APPEARANCE CLEAR (CLEAR); BILIRUBIN NEGATIVE (NEGATIVE); COLOR YELLOW (YELLOW); GLUCOSE NEGATIVE (NEGATIVE); KETONE NEGATIVE (NEGATIVE); NITRITE NEGATIVE (NEGATIVE); PROTEIN NEGATIVE (NEGATIVE); SPECIFIC GRAVITY 1.015 (1.005-1.020); UROBILINOGEN NORMAL (NORMAL)
[2019-03-24 09:35] LABS: BACTERIA MODERATE /hpf (NEGATIVE); EPITHELIAL CELLS 0-5 /hpf (0-5); WHITE CELLS - URINE OCC /hpf (NEGATIVE)
[2019-03-24 12:02] VITALS: BP 103/40
--- NOTE | 2019-03-24 14:06 | NUR ---
IV TO RIGHT AC TENDER WITH SMALL AMT SWELLING. REMOVED AND RE-SITED TO LEFT AC.
[2019-03-24 14:33] VITALS: Ht 167.6 cm; Wt 102.1 kg
[2019-03-24 15:50] LABS: HEMATOCRIT 33.2 % (36.0-48.0); HEMOGLOBIN 10.5 g/dL (12-16)
[2019-03-24 16:00] VITALS: BP 154/69
--- NOTE | 2019-03-24 19:45 | NUR ---
PT SITTING UP IN BED ALERT AND ORIENTED X4. RR EVEN AND UNLABORED. NO S/S OF DISTRESS. BED LOW CALL LIGHT WITHIN REACH. WILL CONTINUE TO MONITOR.
[2019-03-24 20:30] VITALS: BP 124/54
[2019-03-25] VITALS: BP 126/43
--- NOTE | 2019-03-25 02:45 | NUR ---
I have reviewed this patient and I concur with the Shift Assessment completed by the Licensed Practical Nurse today this shift.
[2019-03-25 04:30] VITALS: BP 105/63
--- NOTE | 2019-03-25 05:34 | NUR ---
PT RESTING IN BED WITH EYES CLOSED. RR EVEN AND UNLABORED. NO S/S OF DISTRESS. BED LOW CALL LIGHT WITHIN REACH. WILL CONTINUE TO MONITOR.
[2019-03-25 08:00] VITALS: BP 142/50
[2019-03-25 12:00] VITALS: BP 124/52
[2019-03-25 16:00] VITALS: BP 170/55
--- NOTE | 2019-03-25 16:58 | NUR ---
PT RESTING QUIETLY AT PRESENT. HAS FELT BETTER WITHOUT NAUSEA TODAY. VOIDING FREQUENTLY BUT UP WITH ASSIST DUE TO WEAKNESS AND DIZZINESS. ASKING FOR SOMETHING TO HELP HER SLEEP AT NIGHT. SCD'S HELPING WITH LEG JUMPINESS.
--- NOTE | 2019-03-25 19:50 | NUR ---
PT LAYING IN BEDE ALERT AND ORIENTED X4. RR EVEN AND UNLABORED ON 3L O2 NC. PT DENIES ANY PAIN OR FURTHER NEEDS AT THIS TIME. BED LOQW CALL LIGHT WITHIN REACH. WILL CONTINUE TO MONITOR.
[2019-03-25 20:30] VITALS: BP 147/45
--- NOTE | 2019-03-25 23:30 | NUR ---
PT 22G IV IN LAC INFILTRATED. SOME SWELLING,WARM COMPRESS PROVIDED. ESTABLISHED NEW 22G IV IN RFA. IV PATENT WITH IV ANTIBOTIC RUNNING. WILL CONTINUE TO MONITOR.
--- NOTE | 2019-03-26 02:49 | NUR ---
PT RESTING IN BED WITH EYES CLOSED RR EVEN AND UNLABORED. AWAKES EASILY TO VOICE. NO S/S OF DISTRESS AT THIS TIME. BED LOW CALL LIGHT WITHIN REACH. WILL CONTINUE TO MONITOR.
--- NOTE | 2019-03-26 04:12 | NUR ---
I have reviewed this patient and I concur with the Shift Assessment completed by the Licensed Practical Nurse today this shift.
[2019-03-26 05:41] LABS: BASOPHILS 0.3 % (0-2); EOSINOPHILS 7.9 % (0-7); HEMATOCRIT 31.3 % (36.0-48.0); HEMOGLOBIN 9.4 g/dL (12-16); IMMATURE GRANULOCYTES 0.3 % (0-5); LYMPHOCYTES 18.7 % (15-50); MCV 96.6 fL (80.0-100.0); MEAN PLATELET VOLUME 11.3 fL (7.4-10.4); MONOCYTES 14.1 % (2-11); NEUTROPHILS 58.7 % (40-80); PLATELET COUNT 208 10x3/uL (130-400); RBC 3.24 10x6/uL (4.00-5.40); WBC 7.4 10x3/uL (4.8-10.8)
[2019-03-26 06:06] LABS: ANION GAP 8.3 mmol/L (8-16); CALCIUM 8.9 mg/dL (8.5-10.1); CARBON DIOXIDE 31.4 mmol/L (21.0-32.0); CREATININE - SERUM 1.1 mg/dL (0.6-1.3); POTASSIUM - SERUM 3.7 mmol/L (3.5-5.1)
--- NOTE | 2019-03-26 07:23 | NUR ---
PT RESTING PEACEFULLY, LYING ON RIGHT SIDE. NO FAMILY PRESENT AT BEDSIDE. BREATHS EVEN REGULAR AND UNLABORED. NO SIGNS/SYMPTOMS OF ACUTE DISTRESS NOTED AT THIS TIME. CL IN REACH, SRX2.
[2019-03-26 08:50] VITALS: BP 148/50
--- NOTE | 2019-03-26 10:05 | NUR ---
PT AWAKE AND ORIENTED, ASISTED WITH PUTTING HER HAIR UP. PT STATES SHE'S VERY HOPEFUL TO GET OUT OF HERE TODAY. NO COMPLAINTS/CONCERNS OR QUESTIONS AT THIS TIME. CL IN REACH, SRX2.
--- NOTE | 2019-03-26 10:45 | NUR ---
I have reviewed this patient and I concur with the Shift Assessment completed by the Licensed Practical Nurse today this shift.
[2019-03-26] MEDS ORDERED: LEVAQUIN750 MG PO (11:30)
[2019-03-26] MEDS ORDERED: FLAGYL500 MG PO (11:30)
[2019-03-26] MEDS ORDERED: PROTONIX40 MG PO (11:31)
[2019-03-26 12:56] VITALS: BP 123/49
--- NOTE | 2019-03-26 13:11 | MORECARE ---
CASE MANAGEMENT DISCHARGE SUMMARY PATIENT: ANTONIO BARAJAS UNIT: [id number] ADM DATE: 03/23/19 AGE: 78 : 39 SEX: F ROOM/BED: D.2294 AUTHOR: LOREDOC PHYSICIAN: REFERRING PHYSICIAN: ERMA MORAN MD DATE OF SERVICE: 03/26/19 Discharge Plan Patient Name: ANTONIO BARAJAS Facility: [facility]:[place] : 1940 Planned Disposition: Home Hlth Svc w Plan Readm Anticipated Discharge Date: Discharge Date: Expected LOS: Initial Reviewer: [id number] Initial Review Date: 03/26/2019 Generated: 03/26/19 2:11 pm Comments DCP- Discharge Planning Updated by [id number]: Miroslava Lozada on 03/26/19 12:[address] Patient Name: ANTONIO BARAJAS Admission Status: ER Accout number: [id number] Admission Date: 03-23-2019 : 1940 Admission Diagnosis: Attending: ERMA MORAN Current LOS: 3 Anticipated DC Date: Planned Disposition: Home Hlth Svc w Plan Readm Primary Insurance: [facility] MEDICARE SOLUTIONS Discharge Planning Comments: CM MET WITH PATIENT AFTER OBTAINING VERBAL CONSENT. PATIENT STATES A NURSE COMES OUT MONTHLY AND SHE HAS A CAREGIVER THROUGH [facility]. O2 NEEDS ARE THROUGH [facility]. PATIENT PLANS TO DC TO HOME TODAY. HAS PORTABLE 02 WITH HER. IMM SIGNED. Branch Manager: Miroslava Lozada DCPIA - Discharge Planning Initial Assessment Updated by [id number]: Miroslava Lozada on 03/26/19 1:08 pm * Is the patient Alert and Oriented? Yes * PCP ZAYRA * Pharmacy [facility] * Preadmission Environment Home Alone * ADLs Independent * Other Equipment O2, PORT, NEBS * Community resources currently utilized Home Health * Please name any agencies selected above. [facility] * Additional services required to return to the preadmission environment? No * Can the patient safely return to the preadmission environment? Yes * Has this patient been hospitalized within the prior 30 days at any hospital? No Coverage Notice Reviewer: [id number] - Miroslava Lozada Notice Issued Date-Time: 03/26/2019 13:06 Notice Type: IM Discharge Notice Notice Delivered To: Patient Relationship to Patient: Manager Aerospace Name: Delivery Method: HAND - Hand Delivered Antonia Days: Prior Verbal Notification: Recipient Understood Notice: Yes Recipient Signature: Yes Med Rec Note Co-signed by Attending: Coverage Notice Comment: Patient Name: ANTONIO BARAJAS Page [phone] at 1311 All edits/amendments must be made on the electronic document DICTATION DATE: 03/26/19 1311 MACHINE CLOTHING WORKER: FLAKO 03/26/19 1311 RPT#: [id number] DC DATE: STATUS: ADM IN [facility] [address] [place] [address] END OF REPORT
--- NOTE | 2019-03-26 15:14 | NUR ---
PT ESCORTED OUT VIA [facility] TO [facility] POV. IV OUT TIP INTACT.
--- NOTE | 2019-03-26 16:05 | MORECARE ---
CASE MANAGEMENT DISCHARGE SUMMARY PATIENT: ANTONIO BARAJAS UNIT: [id number] ADM DATE: 03/23/19 AGE: 78 : 39 SEX: F ROOM/BED: D.9319 AUTHOR: PAUL TORREZ PHYSICIAN: REFERRING PHYSICIAN: ERMA MORAN MD DATE OF SERVICE: 03/26/19 Discharge Plan Patient Name: ANTONIO BARAJAS Facility: [facility]:[place] : 1940 Planned Disposition: Home Hlth Svc w Plan Readm Anticipated Discharge Date: Discharge Date: 03/26/2019 Expected LOS: Initial Reviewer: [id number] Initial Review Date: 03/26/2019 Generated: 03/26/19 5:05 pm Comments DCP- Discharge Planning Updated by [email or web address]: Miroslava Lozada on 03/26/19 12:[address] Patient Name: ANTONIO BARAJAS Admission Status: ER Accout number: [id number] Admission Date: 03-23-2019 : 1940 Admission Diagnosis: Attending: ERMA MORAN Current LOS: 3 Anticipated DC Date: Planned Disposition: Home Hlth Svc w Plan Readm Primary Insurance: [facility] MEDICARE SOLUTIONS Discharge Planning Comments: CM MET WITH PATIENT AFTER OBTAINING VERBAL CONSENT. PATIENT STATES A NURSE COMES OUT MONTHLY AND SHE HAS A CAREGIVER THROUGH [facility]. O2 NEEDS ARE THROUGH [facility]. PATIENT PLANS TO DC TO HOME TODAY. HAS PORTABLE 02 WITH HER. IMM SIGNED. Buffet Manager: Miroslava Lozada DCPIA - Discharge Planning Initial Assessment Updated by [id number]: Miroslava Lozada on 03/26/19 1:08 pm * Is the patient Alert and Oriented? Yes * PCP ZAYRA * Pharmacy [facility] * Preadmission Environment Home Alone * ADLs Independent * Other Equipment O2, PORT, NEBS * Community resources currently utilized Home Health * Please name any agencies selected above. [facility] * Additional services required to return to the preadmission environment? No * Can the patient safely return to the preadmission environment? Yes * Has this patient been hospitalized within the prior 30 days at any hospital? No Coverage Notice Reviewer: [id number] - Miroslava Lozada Notice Issued Date-Time: 03/26/2019 13:06 Notice Type: IM Discharge Notice Notice Delivered To: Patient Relationship to Patient: Adjuster Arbitrator Name: Delivery Method: HAND - Hand Delivered Antonia Days: Prior Verbal Notification: Recipient Understood Notice: Yes Recipient Signature: Yes Med Rec Note Co-signed by Attending: Coverage Notice Comment: Last DP export: 03/26/19 12:11 p Patient Name: ANTONIO BARAJAS Page [phone] at 1605 All edits/amendments must be made on the electronic document DICTATION DATE: 03/26/191604 FIELD CONTACT TECHNICIAN: FLAKO 03/26/19 1605 RPT#: [id number] DC DATE:03/26/19 STATUS: DIS IN [facility] [address] [place] [address] END OF REPORT
== END 2019-03-26 15:25 | disposition home health service (06) | DRG 378 ==
LOC: D.ER 11:14 → D.M2 13:29
PROVIDERS: Family Medicine; ADMIT Internal Medicine Nephrology; ATTEND Internal Medicine Nephrology
DX: K92.2 Gastrointestinal hemorrhage, unspecified (principal); A09 Infectious gastroenteritis and colitis, unspecified; J96.10 Chronic respiratory failure, unspecified whether with hypoxia or hypercapnia; D64.9 Anemia, unspecified; J44.9 Chronic obstructive pulmonary disease, unspecified; E03.9 Hypothyroidism, unspecified; I25.10 Atherosclerotic heart disease of native coronary artery without angina pectoris; K21.9 Gastro-esophageal reflux disease without esophagitis; Z68.36 Body mass index [BMI] 36.0-36.9, adult; E66.01 Morbid (severe) obesity due to excess calories

== ENCOUNTER 2019-05-11 10:05 | Day surgery (SDC) | payer MEDICARE, MEDICAID ==
[2019-05-10 10:12] LABS: BASOPHILS 0.4 % (0-2); EOSINOPHILS 4.1 % (0-7); HEMATOCRIT 39.2 % (36.0-48.0); HEMOGLOBIN 12.2 g/dL (12-16); IMMATURE GRANULOCYTES 0.1 % (0-5); LYMPHOCYTES 14.8 % (15-50); MCH 30.2 pg (26.0-34.0); MCHC 31.1 g/dL (31.0-37.0); MEAN PLATELET VOLUME 10.5 fL (7.4-10.4); MONOCYTES 10.2 % (2-11); NEUTROPHILS 70.4 % (40-80); RBC 4.04 10x6/uL (4.00-5.40); RDW 14.5 % (11.5-14.5); WBC 9.3 10x3/uL (4.8-10.8)
[2019-05-10 10:13] LABS: PLATELET COUNT 310 10x3/uL (130-400)
[2019-05-10 10:19] LABS: APTT 28.4 SECONDS (22.8-39.4); INR 0.93 (0.85-1.17); PROTIME 12.4 SECONDS (11.6-15.0)
[~2019-05-11] VITALS: Ht 167.6 cm; Wt 98.4 kg
[~2019-05-11 10:05] MED LIST changes: +FLAGYL500 MG PO; +MYRBETRIQ50 MG PO; +PROTONIX40 MG PO; +ZANAFLEX2 M1 PO; +[UNRECOGNIZED DRUG - OTHER] IH
[2019-05-11 11:10] VITALS: BP 155/52; Ht 167.6 cm; Wt 98.4 kg
[2019-05-11] MEDS ORDERED: OMEPRAZOLE20 M1 PO (11:22)
[2019-05-11] MEDS ORDERED: FUROSEMIDE20 MG PO (11:24)
[2019-05-11] MEDS ORDERED: HYDROCODON-ACE1 EA10 PO (13:21)
--- NOTE | 2019-05-11 13:54 | NUR ---
ET TUBE IN AIRWAY ON ADMIT TO RR
--- NOTE | 2019-05-11 13:54 | NUR ---
ET SIA LEMONS @4144
--- NOTE | 2019-05-11 17:43 | NUR ---
1730 NAUSEA HAS DISSIPATED. WILL DISCHARGE HOME IN CARE OF CAREGIVERWHO WILL CALL PTS SON TO HELP WITH GETTING PATIENT INTO [facility]. THERE IS A RAMP UP TO [facility] AND PT HAS A WALKER AND A WHEELCHAIR. TRANSFEREED FROM TO CAR WITH 1 PERSON ASSISTANCE
--- NOTE | 2019-05-14 10:02 | OP ---
PATIENT NAME: ANTONIO BARAJAS MEDICAL RECORD: [id number] :[birth year] LOCATION:D.OPS ADMISSION DATE: SURGEON: HEMANTH SALVADOR MD DATE OF OPERATION: 05/11/2019 PREOPERATIVE DIAGNOSIS: Painful hardware of the left ankle medial and lateral malleolus. POSTOPERATIVE DIAGNOSIS: Painful hardware of the left ankle medial and lateral malleolus. PROCEDURE: Removal of painful hardware of the left ankle medial and lateral malleolus. SURGEON: Hemanth Salvador MD COLLATING MACHINE OPERATOR: Deshawn Knight. INTRAOPERATIVE COMPLICATIONS: None. SUMMARY OF PATHOLOGIC FINDINGS: Essentially no pathology was found. The patient had severe irritation about the medial and lateral malleolus, having had that plated. The patient did have 2 front to back screws that were buried deep within the bone and the decision was made to leave those. OPERATIVE SUMMARY IN DETAIL: After obtaining the appropriate preoperative orthopedic surgery consent as well as anesthetic consultation, evaluation, and clearance, the patient was brought to the operating room and placed on the operating table in supine position. After adequate general laryngeal mask was administered, tourniquet was placed about the proximal aspect of the left lower extremity. The left lower extremity was then prepped and draped in routine sterile fashion. At this point, appropriate timeout was taken and agreed upon by all after giving the appropriate patient unique identifiers. Next, the leg was elevated, exsanguinated, tourniquet was inflated to 350 mmHg. Incision was made over the lateral aspect of the previous incision. This was dissected down to the periosteum. The plate was identified. Serial and sequential removal of all screws was done followed by removal of the plate. Rongeur was used to smoothen some osseous prominences about the fibula. A small incision was made over the medial malleolus and again fluoroscopically guided dissection was carried down to the malleolar screws which were removed also. Having completed this, both areas were copiously irrigated and closed with #2 Vicryl followed by 4-0 Prolene in running fashion by Deshawn Knight. Sterile dressings were applied. Tourniquet was deflated. The patient was awakened and taken to the recovery room in stable condition. All final needle and sponge counts were correct. TRANSINT:[id number] Voice Confirmation ID: [id number] DOCUMENT ID: [id number] OPERATIVE REPORT [id number] ANTONIO BARAJAS MODESTO GONZALEZHEMANTH at 1002 CC: [id number] DICTATION DATE: 05/11/19 1324 SEISMOGRAPH SHOOTER: 05/11/19 1817 [facility] 05/11/19 [id number] [place] [address]
== END 2019-05-11 17:35 | disposition home or self-care (01) ==
LOC: D.OPS 10:05
PROVIDERS: Anesthesiology; ATTEND Orthopaedic Surgery
DX: M25.572 Pain in left ankle and joints of left foot (principal); S82.92XD Unspecified fracture of left lower leg, subsequent encounter for closed fracture with routine healing; E78.00 Pure hypercholesterolemia, unspecified; D64.9 Anemia, unspecified; I10 Essential (primary) hypertension; I25.10 Atherosclerotic heart disease of native coronary artery without angina pectoris; J44.9 Chronic obstructive pulmonary disease, unspecified; M54.9 Dorsalgia, unspecified; M54.5 Low back pain; R10.11 Right upper quadrant pain; R09.02 Hypoxemia; M19.91 Primary osteoarthritis, unspecified site

== ENCOUNTER 2020-01-10 13:47 | Outpatient (CLI) | payer MEDICARE, MEDICAID ==
[~2020-01-10] VITALS: Ht 167.6 cm; Wt 100.5 kg
[~2020-01-10 13:47] MED LIST changes: +HYDROCODON-ACE1 EA10 PO; +OMEPRAZOLE20 M1 PO
[2020-01-10 14:14] LABS: BASOPHILS 0.3 % (0-2); BILIRUBIN NEGATIVE (NEGATIVE); EOSINOPHILS 5.6 % (0-7); HEMATOCRIT 28.2 % (36.0-48.0); HEMOGLOBIN 7.9 g/dL (12-16); IMMATURE GRANULOCYTES 0.3 % (0-5); KETONE NEGATIVE (NEGATIVE); LYMPHOCYTES 23.7 % (15-50); MCH 23.8 pg (26.0-34.0); MCV 84.9 fL (80.0-100.0); MEAN PLATELET VOLUME 9.7 fL (7.4-10.4); MONOCYTES 11.4 % (2-11); NEUTROPHILS 58.7 % (40-80); NITRITE NEGATIVE (NEGATIVE); PLATELET COUNT 358 10x3/uL (130-400); RBC 3.32 10x6/uL (4.00-5.40); RDW 15.7 % (11.5-14.5); UROBILINOGEN NORMAL mg/dL (< 2); WBC 9.9 10x3/uL (4.8-10.8)
[2020-01-10 14:34] VITALS: BP 123/84; Ht 167.6 cm; Wt 100.5 kg
--- NOTE | 2020-01-10 15:14 | NUR ---
1440 REG DIET SERVED. PT ON 4L NC AT HOME. FRIEND AT SIDE. 1458 BLOOD CHECKED AT BEDSIDE BY THIS NURSE AND RENATA CASIANO RN, INITATED AT 50/CC/HR.
--- NOTE | 2020-01-10 15:29 | NUR ---
1520 NO PROBLEMS WITH TRANSFUSION, TALKING WITH NEIGHBOR, ATE 100% OF LUNCH SERVED, RATE INCREASED TO 150/CC/HR.
--- NOTE | 2020-01-10 18:06 | NUR ---
1745 IV REMOVED AND PRESSURE HELD. INSTRUCTIONS GIVEN AND PT INSTRUCTED TO TAKE HER SCHEDULED BREATHING TX AND LASIX WHEN SHE GETS HOME.
== END 2020-01-10 18:05 | disposition home or self-care (01) ==
LOC: D.OPS 13:47
PROVIDERS: ATTEND Family Medicine
DX: D64.9 Anemia, unspecified (principal)

== ENCOUNTER 2020-06-20 13:26 | Emergency (ER) | payer MEDICARE, MEDICAID ==
[~2020-06-20] VITALS: Ht 167.6 cm; Wt 90.9 kg
[2020-06-20 13:34] VITALS: Ht 167.6 cm; Wt 90.9 kg
[2020-06-20 14:27] LABS: CALC OSMOLALITY 279 mosm/kg (275-300); CALCIUM 9.2 mg/dL (8.5-10.1); CARBON DIOXIDE 32.9 mmol/L (21.0-32.0); CHLORIDE - SERUM 104 mmol/L (98-107); GLUCOSE 97 mg/dL (74-106); POTASSIUM - SERUM 4.2 mmol/L (3.5-5.1); SODIUM 140 mmol/L (136-145); UREA NITROGEN 16 mg/dL (7-18); eGFR NON AFRICAN AMERICAN 56 mL/min (90-120)
[2020-06-20 14:28] LABS: BASOPHILS 0.4 % (0-2); EOSINOPHILS 6.6 % (0-7); HEMATOCRIT 31.9 % (36.0-48.0); HEMOGLOBIN 9.3 g/dL (12-16); IMMATURE GRANULOCYTES 0.4 % (0-5); LYMPHOCYTE ABS# 1.78 10x3/uL (1.18-3.74); LYMPHOCYTES 22.1 % (15-50); MCH 27.4 pg (26.0-34.0); MCHC 29.2 g/dL (31.0-37.0); MCV 94.1 fL (80.0-100.0); MEAN PLATELET VOLUME 10.6 fL (7.4-10.4); MONOCYTES 10.7 % (2-11); NEUTROPHIL ABS# 4.81 10x3/uL (1.56-6.13); NEUTROPHILS 59.8 % (40-80); PLATELET COUNT 419 10x3/uL (130-400); RBC 3.39 10x6/uL (4.00-5.40); RDW 14.9 % (11.5-14.5)
[2020-06-20 14:31] LABS: APTT 27.9 SECONDS (22.8-39.4); INR 1.12 (0.85-1.17); PROTIME 13.4 SECONDS (11.6-15.0)
[2020-06-20 15:02] LABS: ALBUMIN 3.5 g/dL (3.4-5.0); ALKALINE PHOSPHATASE 112 U/L (30-120); ALT (SGPT) 18 U/L (10-68); BILIRUBIN - TOTAL 0.18 mg/dL (0.2-1.3); CKMB 0.8 U/L (0.0-3.6); CREATINE KINASE 65 UL (21-215); MAGNESIUM - SERUM 2.2 mg/dL (1.8-2.4); PROTEIN - SERUM 7.5 g/dL (6.4-8.2); TROPONIN-I < 0.017 ng/mL (0.000-0.060)
[2020-06-20 17:11] VITALS: BP 176/57
== END 2020-06-20 17:30 | disposition home or self-care (01) ==
LOC: D.ER 13:26
PROVIDERS: Family Medicine
DX: R07.89 Other chest pain (principal); I25.10 Atherosclerotic heart disease of native coronary artery without angina pectoris; R06.00 Dyspnea, unspecified; I10 Essential (primary) hypertension; J44.9 Chronic obstructive pulmonary disease, unspecified; K21.9 Gastro-esophageal reflux disease without esophagitis; Z99.81 Dependence on supplemental oxygen

== ENCOUNTER → 2020-07-04 10:14 | Outpatient (CLI) | payer MEDICARE, MEDICAID ==
[2020-06-20 13:34] VITALS: BMI 32.3
--- NOTE | 2020-07-08 16:00 | EC ---
PATIENT:ANTONIO BARAJAS DATE OF SERVICE: 07/04/20 SEX: F MEDICAL RECORD: [id number] DATE OF : [birth year] LOCATION:D[facility] AGE OF PATIENT: 79 ADMISSION DATE: 07/04/20 REFERRING PHYSICIAN: INTERPRETING PHYSICIAN: YAMILA YATES MD ECHOCARDIOGRAM REPORT ECHO CHARGES 4 ECHO COMPLETE Date: 07/04/20 CLINICAL DIAGNOSIS: DYSPNEA HX OF CAD/STENT ECHOCARDIOGRAPHIC MEASUREMENTS (adult normal given) AC root (d.<3.7cm) 3.9 cm LV Septum d (<1.2 cm> 1.1 cm Valve Excursion 1.6 cm LV Septum (systole) 1.6 cm Left Atria (s.<4.0cm> 4.0 cm LVPW d(<1.2cm) 1.5 cm RV (d.<2.3cm) 3.3 cm LVPW (sytole) 1.9 cm LV diastole(<5.6CM) 4.5 cm MV E-F(>70mm/sec) cm LV systole 2.7 cm LVOT Diameter 2.0 cm MV exc.(>10mm) 1.1 cm Est.ejection fraction (50-75%) % DOPPLER: LVIT cm/sec A 71.0 cm/sec E 54.0 cm/sec LA cm/sec RVSP 37 mmHg LVOT 110 cm/sec AOP1/2T m/s Asc. Ao 124 cm/sec RVOT 1014 cm/sec RA cm/sec PA 126 cm/sec AV Gradient Peak 6.19 mmHg AV Mean 2.97 mmHg AV Area 2.9 cm MV Gradient Peak 4.16 mmHg MV Mean 1.74 mmHg MV Area cm COMMENTS: Water Control Station Engineer: 2 ALEJANDRINA FERRELL Performance Improvement Consultant: 3 Dr. Kennedy TAPE# PACS Pericardial Effusion N DATE OF SERVICE: Adequate 2D, color flow imaging, spectral Doppler, and M-Mode. FINDINGS: LVH is present. LV internal dimensions are normal. Wall motion is normal. EF is greater than or equal to 55%. Aortic valve is tricuspid. No evidence of stenosis by Doppler interrogation. Left atrium is normal at 4.0 cm. Mitral valve shows no prolapse. Trace MR. Right side is grossly normal. Trace TR. ECHOCARDIOGRAM REPORT [id number] ANTONIO BARAJAS TRANSINT:[id number] Voice Confirmation ID: [id number] DOCUMENT ID: [id number] YAMILA YATES MD at 1600 CC: [id number] DICTATION DATE: 07/05/20816 DIETITIAN: 07/05/20 0845 [facility] 07/04/20 [place] [id number] [place] [id number]
== END | disposition home or self-care (01) ==
LOC: D.ECHO 07-03 10:35
PROVIDERS: ATTEND Nurse Practitioner Family
DX: R06.00 Dyspnea, unspecified (principal)

== ENCOUNTER → 2020-08-16 08:22 | Outpatient (CLI) | payer MEDICARE, MEDICAID ==
[2020-06-20 13:34] VITALS: BMI 32.3
== END | disposition home or self-care (01) ==
LOC: D.HCCECHO 08:22
PROVIDERS: ATTEND Internal Medicine Cardiovascular Disease
DX: I10 Essential (primary) hypertension (principal)